=== PATIENT | male | born 1955 | race American Indian/Alaskan Native ===

== ENCOUNTER 2017-02-21 21:18 | Observation (INO) | payer OTHER ==
[2017-02-21] MEDS ORDERED: Nitroglycerin 0.4 MG Tab.SL SL ONE (21:29)
--- NOTE | 2017-02-21 21:32 | EDM.PDOC ---
ED HPI GENERAL MEDICAL PROBLEM - General Chief Complaint: Chest Pain Stated Complaint: chest pain [id number] Time Seen by Provider: 02/21/17 21:30 Source of Information: Reports: Patient History Limitations: Reports: No Limitations - History of Present Illness INITIAL COMMENTS - FREE TEXT/NARRATIVE: mid sternal chest pain on off since yesterday, tried TUMs but '0', had stents placed last year. tonight pain not going away. 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 Mid-Sternal Chest Pain Score (Numeric/FACES): 10 - Related Data Allergies Allergy/AdvReac Type Severity Reaction Status Date / Time venom-honey bee Allergy Difficulty Verified 02/21/17 21:21 [bee venom (honey bee)] Breathing Home Meds: Home Meds Aspirin [Low Dose Aspirin EC] 81 mg PO BEDTIME 07/28/14 [History] Lisinopril 5 mg PO DAILY 07/28/14 [History] Clopidogrel Bisulfate [Clopidogrel] 1 tab PO DAILY 03/19/16 [History] atorvaSTATin Calcium [Atorvastatin Calcium] 20 mg PO DAILY 03/19/16 [History] [place]-3 Fatty Acids [Fish Oil] 2 cap PO BID 05/04/16 [History] Gabapentin [Neurontin] 600 mg PO TID 08/21/16 [History] Isosorbide Mononitrate [Imdur] 60 mg PO BEDTIME 09/24/16 [History] sitaGLIPtin Phos/Metformin HCl [Janumet 50-1,000 MG] 1 each PO BID 02/21/17 [ History] Past Medical History HEENT History: Reports: Other (See Below) Other HEENT History: wears glasses Cardiovascular History: Reports: High Cholesterol, Hypertension Respiratory History: Reports: Pneumonia, Recurrent Gastrointestinal History: Reports: Other (See Below) Other Gastrointestinal History: [place] HERNIA Genitourinary History: Reports: None Musculoskeletal History: Reports: Arthritis Neurological History: Reports: None Psychiatric History: Reports: None Endocrine/Metabolic History: Reports: Diabetes, Type II Hematologic History: Reports: None Immunologic History: Reports: None Oncologic (Cancer) History: Reports: None Dermatologic History: Reports: None - Infectious Disease History Infectious Disease History: Reports: None - Past Surgical History Cardiovascular Surgical History: Reports: Coronary Artery Stent Male Surgical History: Reports: Other (See Below) Social & Family History - Family History Family Medical History: Noncontributory - Tobacco Use Smoking Status *Q: Former Smoker Years of Tobacco use: 10 Packs/Tins Daily: 1 Used Tobacco, but Quit: Yes Month Tobacco Last Used: June Second Hand Smoke Exposure: No - Caffeine Use Caffeine Use: Reports: Coffee, Soda - Alcohol Use Days Per Week of Alcohol Use: 0 - Recreational Drug Use Recreational Drug Use: No ED ROS GENERAL - Review of Systems Review Of Systems: ROS reveals no pertinent complaints other than HPI. ED EXAM, GENERAL - Physical Exam Exam: See Below Exam Limited By: No Limitations General Appearance: Alert, WD/WN, Anxious Ears: Hearing Grossly Normal Throat/Mouth: Normal Voice, No Airway Compromise Head: Atraumatic Neck: Non-Tender, Full Range of Motion Respiratory/Chest: No Respiratory Distress Cardiovascular: Regular Rate, Rhythm GI/Abdominal: Soft, Non-Tender Neurological: Alert, Oriented, Normal Cognition, Normal Gait, No Motor/Sensory Deficits Psychiatric: Flat Affect Skin Exam: Warm, Dry Lymphatic: No Adenopathy Course - Vital Signs Last Recorded V/S: Last Vital Signs Temp 36.4 C 02/21/17 21:28 Pulse 83 02/21/17 22:40 Resp 20 02/21/17 22:40 BP 134/74 02/21/17 22:40 Pulse Ox 98 02/21/17 22:40 - Orders/Labs/Meds Orders: Active Orders 24 hr Category Date Time Status EKG Documentation Completion [RC] STAT Care 02/21/17 21:33 Active Labs: Laboratory Tests 02/21/17 02/21/17 02/21/17 Range/Units 21:25 21:25 21:25 WBC 5.3 (5.0-10.0) 10^3/uL RBC 3.98 L (4.6-6.2) 10^6/uL Hgb 11.7 L (14.0-18.0) g/dL Hct 35.0 L (40.0-54.0) % MCV 87.9 (80-100) fL MCH 29.4 (27.0-34.0) pg MCHC 33.4 (33.0-35.0) g/dL Plt Count 220 (150-450) 10^3/uL Neut % (Auto) 50.6 (42.2-75.2) % Lymph % (Auto) 29.6 (20.5-50.1) % Thayer % (Auto) 15.7 H (2-8) % Eos % (Auto) 3.7 H (1.0-3.0) % Baso % (Auto) 0.4 (0.0-1.0) % D-Dimer, Quantitative 376 (0-400) ng/mL Sodium 140 (135-145) mmol/L Potassium 4.6 (3.6-5.0) mmol/L Chloride 106 (101-111) mmol/L Carbon Dioxide 26.0 (21.0-31.0) mmol/L Anion Gap 12.6 BUN 13 (7-18) mg/dL Creatinine 1.1 (0.6-1.3) mg/dL Est Cr Clr Drug Dosing 74.16 mL/min Estimated GFR (MDRD) > 60 BUN/Creatinine Ratio 11.81 Glucose 191 H (74-105) mg/dL Calcium 9.1 (8.4-10.2) mg/dl Total Bilirubin 0.5 (0.2-1.0) mg/dL AST 23 (10-42) IU/L ALT 26 (10-60) IU/L Alkaline Phosphatase 95 (42-121) IU/L Troponin I < 0.02 (0.00-0.02) ng/ml B-Natriuretic Peptide 15 (0-100) pg/ml Total Protein 7.0 (6.7-8.2) g/dl Albumin 3.7 (3.2-5.5) g/dl Globulin 3.3 Albumin/Globulin Ratio 1.12 Meds: Medications Discontinued Medications Generic Name Dose Route Start Last Admin Trade Name Tato PRN Reason Stop Dose Admin Morphine Sulfate 2 mg 02/21/17 21:40 02/21/17 21:45 Morphine IVPUSH 02/21/17 21:41 2 mg ONETIME ONE Administration Nitroglycerin 0.4 mg 02/21/17 21:29 02/21/17 21:32 Nitrostat SL 02/21/17 21:30 0.4 mg ONETIME ONE Administration Ondansetron HCl 4 mg 02/21/17 21:40 02/21/17 21:45 Zofran IV 02/21/17 21:41 4 mg ONETIME ONE Administration - Re-Assessments/Exams Free Text/Narrative Re-Assessment/Exam: 02/21/17 22:44 results discussed with Pt and case discussed with Dr Bradley who kindly admitted pt to observation Departure - Departure Time of Disposition: 22:45 Disposition: Refer to Observation Condition: Good Clinical Impression: Chest pain Qualifiers: Chest pain type: other chest pain Qualified Code(s): R07.89 - Other chest pain ; R07.8 - Other chest pain Forms: ED Department Discharge - My Orders Last 24 Hours: My Active Orders 02/21/17 21:33 EKG Documentation Completion [RC] STAT - Assessment/Plan Last 24 Hours: My Active Orders 02/21/17 21:33 EKG Documentation Completion [RC] STAT
[2017-02-21] MEDS ORDERED: Morphine 2 MG/ML Syringe IVPUSH ONE (21:40)
[2017-02-21] MEDS ORDERED: Ondansetron 4 MG/2 ML SDV IV ONE (21:40)
[2017-02-21 21:53] LABS: CHLORIDE,CL 106 mmol/L (101-111); SODIUM,NA 140 mmol/L (135-145)
[2017-02-22] MEDS ORDERED: Nitroglycerin 0.4 MG Tab.SL SL PRN (00:08)
[2017-02-22] MEDS ORDERED: Aspirin 81 MG Tab.Chew PO ONE (00:09)
[2017-02-22] MEDS ORDERED: Acetaminophen 325 MG Tab PO PRN (00:10)
[2017-02-22] MEDS ORDERED: Ondansetron 4 MG/2 ML SDV IVPUSH PRN (00:12)
[2017-02-22] MEDS ORDERED: Morphine 2 MG/ML Syringe IVPUSH PRN (00:12)
[2017-02-22] MEDS ORDERED: Pantoprazole 40 MG Vial IVPUSH SCH (00:15)
[2017-02-22] MEDS ORDERED: Sodium Chloride 0.9% 1,000 ML IV SCH (00:15)
--- NOTE | 2017-02-22 00:44 | PCM.HP ---
H&P History of Present Illness - General Date of Service: 02/22/17 Admit Problem/Dx: Admission Diagnosis/Problem Admission Diagnosis/Problem Chest pain Source of Information: Patient History Limitations: Reports: No Limitations - History of Present Illness Initial Comments - Free Text/Narative: 61-year-old male was the best medical history significant for coronary artery disease status post stent on year ago, diabetes mellitus type 2, arthritis, recurrent pneumonia, hypertension, high cholesterol present to the emergency room w chest pain started 2 days ago. Patient stated that his chest pain started while sitting watching TV 2 days ago and has been on and off until early this afternoon when it become constant and worse. The pain is located in the lower sternum area and this evening start radiating to his right neck, right shoulder, right arm. The pain is rated at 7-10/10 on pain scale. He described the pain as chest tightness. Initially pain was getting worse with deep breathing but today nothing made the pain worse or better. Today he started feeling short of breath described as difficulty to take a deep breath. He said it felt like his symptoms when he had his stent placed. He admitted feeling feverish and having the chills today and feeling lightheaded and having nausea but denies cough, syncopal episode, vomiting. He denies history of smoking. He took antiacid medications at home and did not help his pain. He denies any other symptoms or concerns. He took all his medications today. He took 2 baby aspirin at homeIn the emergency room his EKG did not show acute ST or T-wave changes and was positive for prolonged MI interval. Repeated EKG on the floor while he was rating his pain at 9/10 shows sinus rhythm with first degree AV block but no ST or T-wave changes. Troponin was less than 0.02. His CBC and CMP are unremarkable. In ER he was given sublingual nitroglycerin which did not help however 2 mg of morphine helped his pain for short time. Mid-Sternal Chest Pain Score (Numeric/FACES): 9 - Related Data Allergies/Adverse Reactions: Allergies Allergy/AdvReac Type Severity Reaction Status Date / Time venom-honey bee Allergy Difficulty Verified 02/21/17 23:15 [bee venom (honey bee)] Breathing Home Medications: Home Meds Aspirin [Low Dose Aspirin EC] 81 mg PO BEDTIME 07/28/14 [History] Lisinopril 5 mg PO DAILY 07/28/14 [History] Clopidogrel Bisulfate [Clopidogrel] 1 tab PO DAILY 03/19/16 [History] atorvaSTATin Calcium [Atorvastatin Calcium] 20 mg PO DAILY 03/19/16 [History] [place]-3 Fatty Acids [Fish Oil] 2 cap PO BID 05/04/16 [History] Gabapentin [Neurontin] 600 mg PO BEDTIME 08/21/16 [History] Isosorbide Mononitrate [Imdur] 60 mg PO BEDTIME 09/24/16 [History] Acetaminophen 325 mg PO Q4HR PRN 02/21/17 [History] Metoprolol Succinate [Toprol XL] 25 mg PO DAILY 02/21/17 [History] sitaGLIPtin Phos/Metformin HCl [Janumet 50-1,000 MG] 1 each PO BID 02/21/17 [ History] Past Medical History HEENT History: Reports: Other (See Below) Other HEENT History: wears glasses Cardiovascular History: Reports: High Cholesterol, Hypertension, Stents Respiratory History: Reports: Pneumonia, Recurrent Gastrointestinal History: Reports: Other (See Below) Other Gastrointestinal History: [place] HERNIA Genitourinary History: Reports: None Musculoskeletal History: Reports: Arthritis Neurological History: Reports: Neuropathy, Peripheral Psychiatric History: Reports: None Endocrine/Metabolic History: Reports: Diabetes, Type II Hematologic History: Reports: None Immunologic History: Reports: None Oncologic (Cancer) History: Reports: None Dermatologic History: Reports: None - Infectious Disease History Infectious Disease History: Reports: None - Past Surgical History Head Surgeries/Procedures: Reports: None Cardiovascular Surgical History: Reports: Coronary Artery Stent GI Surgical History: Reports: Appendectomy, Cholecystectomy, Hernia Repair/Other Male Surgical History: Reports: None Social & Family History - Family History Family Medical History: Noncontributory - Tobacco Use Smoking Status *Q: Former Smoker Years of Tobacco use: 7 Packs/Tins Daily: 1 Used Tobacco, but Quit: Yes Month Tobacco Last Used: Jun, 2015 Second Hand Smoke Exposure: No - Caffeine Use Caffeine Use: Reports: Coffee, Soda - Alcohol Use Days Per Week of Alcohol Use: 0 - Recreational Drug Use Recreational Drug Use: No H&P Review of Systems - Review of Systems: Review Of Systems: See Below General: Denies: Diaphoresis, Decreased Appetite, Weight Loss, Weight Gain HEENT: Reports: No Symptoms Pulmonary: Denies: Wheezing, Cough, Sputum, Hemoptysis Cardiovascular: Denies: Palpitations, Orthopnea, PND, Edema, Syncope Gastrointestinal: Reports: No Symptoms (Except feeling nauseous) Genitourinary: Reports: No Symptoms Musculoskeletal: Reports: No Symptoms Skin: Reports: No Symptoms Psychiatric: Reports: No Symptoms Neurological: Reports: No Symptoms Hematologic/Lymphatic: Reports: No Symptoms Immunologic: Reports: No Symptoms Exam - Exam Exam: See Below - Vital Signs Vital Signs: Last Vital Signs Temp 36.9 C 02/21/17 23:15 Pulse 85 02/21/17 23:15 Resp 20 02/21/17 23:15 BP 157/79 H 02/22/17 00:21 Pulse Ox 100 02/21/17 23:15 Weight: 98.475 kg - Exam General: Alert, Oriented, Cooperative, Mild Distress (From chest pain but improved after he got nitroglycerin on the floor). No: Moderate Distress, Severe Distress, Sedated, Lethargic, Obtunded HEENT: Conjunctiva Clear, EACs Clear, EOMI, Hearing Intact, Mucosa Moist & Bazine , Nares Patent, Normal Nasal Septum, Posterior Pharynx Clear, Pupils Equal, Pupils Reactive, TMs Clear Neck: Supple, Trachea Midline, +2 Carotid Pulse wo Bruit Lungs: Clear to Auscultation, Normal Respiratory Effort. No: Decreased Breath Sounds, Crackles, Rales, Rhonchi, Rub, Stridor, Wheezing Cardiovascular: Regular Rate, Regular Rhythm, Normal S1, Normal S2 Abdomen: Normal Bowel Sounds, Soft, Pelvis Stable. No: Organomegaly, Peritoneal Signs, Distention, Guarding, Rigidity, Rebound, Tenderness, McBurney' s Sign, Carreno's Sign (Male) Exam: Deferred Rectal (Males) Exam: Deferred Back Exam: Normal Inspection, Full Range of Motion Extremities: Normal Inspection, Normal Pulses. No: Clubbing, Cyanosis, Calf Tenderness, Edema Skin: Warm, Dry, Intact Neurological: Cranial Nerves Intact, Strength Equal Bilateral, Normal Speech, Normal Tone, Sensation Intact. No: Focal Deficit Neuro Extensive - Mental Status: Alert, Oriented x3, Normal Mood/Affect, Normal Cognition, Memory Intact Neuro Extensive - Motor, Sensory, Reflexes: CN II-XII Intact Psychiatric: Alert, Normal Affect, Normal Mood - Patient Data Result Diagrams: 02/21/17 21:25 02/21/17 21:25 *Q Meaningful Use (ADM) - VTE *Q VTE Criteria *Q: - Stroke *Q Stroke Criteria *Q: - AMI *Q AMI Criteria *Q: - Problem List (1) Diabetes mellitus type 2 in obese SNOMED Code(s): 90112383 ICD Code: E11.69 - TYPE 2 DIABETES MELLITUS WITH OTHER SPECIFIED COMPLICATION ; E66.9 - OBESITY, UNSPECIFIED Status: Chronic Current Visit: Yes (2) Essential hypertension SNOMED Code(s): 83414356 ICD Code: I10 - ESSENTIAL (PRIMARY) HYPERTENSION Status: Chronic Current Visit: Yes (3) Status post insertion of drug-eluting stent into right coronary artery for coronary artery disease SNOMED Code(s): 572284397, [id number] ICD Code: Z95.5 - PRESENCE OF CORONARY ANGIOPLASTY IMPLANT AND GRAFT Status : Chronic Current Visit: Yes (4) Chest pain SNOMED Code(s): 45356760 ICD Code: R07.9 - CHEST PAIN, UNSPECIFIED Status: Acute Priority: High Current Visit: Yes Qualifiers: Chest pain type: other chest pain Qualified Code(s): R07.89 - Other chest pain; R07.8 - Other chest pain (5) Nausea SNOMED Code(s): 804386943 ICD Code: R11.0 - NAUSEA Status: Acute Current Visit: No Problem List Initiated/Reviewed/Updated: Yes Orders Last 24hrs: Active Orders 24 hr Category Date Time Status Patient Status [ADT] Routine ADT 02/22/17 00:12 Active Antiembolic Devices [RC] PER UNIT ROUTINE Care 02/22/17 00:23 Active Bedrest Bathroom Privileges [RC] ASDIRECTED Care 02/22/17 00:12 Active Cardiac Monitoring [RC] CONTINUOUS Care 02/22/17 00:19 Active EKG 12 Lead [EKG Documentation Completion] [RC] STAT Care 02/22/17 00:07 Active EKG Documentation Completion [RC] AM Care 02/22/17 07:00 Active Height and Weight [RC] DAILY Care 02/22/17 00:12 Active Intake and Output [RC] Q6H Care 02/22/17 00:18 Active Notify Provider Vital Signs [RC] ASDIRECTED Care 02/22/17 00:19 Active Oxygen Therapy [RC] PRN Care 02/22/17 00:12 Active VTE/DVT Education [RC] PER UNIT ROUTINE Care 02/22/17 00:12 Active Vital Signs [RC] Q4H Care 02/22/17 00:12 Active Consistent Carbohydrate Diet [DIET] Diet 02/22/17 Breakfast Active Nothing per Oral Now Diet [DIET] Diet 02/22/17 Breakfast Active BASIC METABOLIC PANEL,BMP [CHEM] AM Lab 02/22/17 05:11 Ordered CBC WITH AUTO DIFF [HEME] AM Lab 02/22/17 05:11 Ordered MAGNESIUM [CHEM] AM Lab 02/22/17 05:11 Ordered TROPONIN I [CHEM] AM Lab 02/22/17 05:11 Ordered TROPONIN I [CHEM] Timed Lab 02/22/17 13:00 Ordered TSH ULTRASENSITIVE [CHEM] AM Lab 02/22/17 05:11 Ordered Acetaminophen [Tylenol] Med 02/22/17 00:10 Ordered 325 mg PO Q4HR PRN Aspirin [Halfprin] Med 02/22/17 21:00 Ordered 81 mg PO BEDTIME Clopidogrel [Plavix] Med 02/22/17 09:00 Ordered 1 tab PO DAILY Enoxaparin [Lovenox] Med 02/22/17 09:00 Ordered 40 mg SUBCUT DAILY Gabapentin Med 02/22/17 21:00 Ordered 600 mg PO BEDTIME Isosorbide Mononitrate [Imdur] Med 02/22/17 21:00 Ordered 60 mg PO BEDTIME Lisinopril [Prinivil] Med 02/22/17 09:00 Ordered 5 mg PO DAILY Metoprolol Succinate [Toprol XL] Med 02/22/17 09:00 Ordered 25 mg PO DAILY Morphine Med 02/22/17 00:12 Ordered 2 mg IVPUSH Q2H PRN Nitroglycerin [Nitrostat] Med 02/22/17 00:08 Active 0.4 mg SL Q5M PRN Nitroglycerin/D5W [Nitroglycerin 25 MG/D5W 250 ML] Med 02/22/17 00:45 Ordered 25 mg in 250 ml IV TITRATE Ondansetron [Zofran] Med 02/22/17 00:12 Ordered 4 mg IVPUSH Q6H PRN Pantoprazole [ProTONIX IV] Med 02/22/17 00:15 Ordered 40 mg IVPUSH Q24H Sodium Chloride 0.9% [Normal Saline] 1,000 ml Med 02/22/17 00:15 Ordered IV ASDIRECTED atorvaSTATin [Lipitor] Med 02/22/17 09:00 Ordered 20 mg PO DAILY sitaGLIPtin Phos/Metformin HCl [Janumet 50-1,000 MG] Med 02/22/17 09:00 Ordered 1 each PO BID Sequential Compression Device [OM.PC] Per Unit Routine Oth 02/22/17 00:20 Ordered Resuscitation Status Routine Resus Stat 02/22/17 00:12 Ordered Medication Orders Nitroglycerin (Nitrostat) 0.4 mg SL Q5M PRN PRN Reason: Chest Pain Last Admin: 02/22/17 00:21 Dose: 0.4 mg Assessment/Plan Comment:: Chest pain in adult Chest pain slightly improved on second dose of nitroglycerin I'll start patient on nitro drip I discussed this patient starting heparin as I cannot exclude acute coronary syndrome/SC. I explained to the patient the benefits versus risk of treatment and I recommended starting heparin. However patient did not want to take the risk of bleeding also had slow so he declined the heparin. He understands that if he has heart attack he may from that and heparin may help reducing the risk of from heart attack He is admitted for observation on telemetry monitoring -Repeat troponin for other 2 sets -Repeat EKG in the morning -Nothing by mouth for now but can eat if next troponin is negative -IV fluid infusion of normal saline at 150 mL per hour -Continue with his lisinopril, metoprolol, Imdur, aspirin, Plavix, atorvastatin Diabetes mellitus type 2 Continue his Janumet Start sliding scale insulin Nausea Most likely from chest pain -I'll give Protonix IV Antiemetic as needed Essential hypertension -Blood pressure is slightly elevated Continue his lisinopril, metoprolol, Imdur Watch blood pressure closely Lovenox for DVT prophylaxis He wants to be full code Plan of care was discussed with patient who agreed with it except he declined heparin
[2017-02-22] MEDS ORDERED: Nitroglycerin/D5W 25 MG/250 ML BOTTLE IV SCH (00:45)
[2017-02-22] MEDS ORDERED: Sodium Chloride 0.9% 10 ML Syringe FLUSH PRN (03:34)
[2017-02-22 06:55] LABS: CHLORIDE,CL 110 mmol/L (101-111); SODIUM,NA 139 mmol/L (135-145)
[2017-02-22] MEDS ORDERED: Non-Formulary Medication 1 Each (Sitagliptin Phos/Metformin Hcl [Janumet 50-1,000 Mg] 1 EA PO SCH ×2 (08:00→09:00)
[2017-02-22] MEDS: Insulin Aspart 100 Units/ML 3 ML Pen SUBCUT SCH ×2 (08:41→11:56)
[2017-02-22] MEDS ORDERED: Clopidogrel 75 MG Tab PO SCH (09:00)
[2017-02-22] MEDS ORDERED: Metoprolol Succinate 25 MG Tab.ER PO SCH (09:00)
[2017-02-22] MEDS ORDERED: Lisinopril 5 MG Tab PO SCH (09:00)
[2017-02-22] MEDS ORDERED: atorvaSTATin 20 MG Tab PO SCH (09:00)
[2017-02-22] MEDS ORDERED: Enoxaparin 40 MG/0.4 ML Syringe SUBCUT SCH (09:00)
[2017-02-22] MEDS ORDERED: Magnesium Sulfate/Water 2 GM in Premix Bag 1 BAG IV ONE (11:06)
[2017-02-22 12:57] VITALS: BP 127/77
--- NOTE | 2017-02-22 14:08 | PCM.DCSUM1 ---
Discharge Summary - Hospital Course Free Text/Narrative:: 61-year-old male was the best medical history significant for coronary artery disease status post 2 stents one year ago, diabetes mellitus type 2, arthritis, recurrent pneumonia, hypertension, high cholesterol present to the emergency room w chest pain started 2-3 days ago. Patient stated that his chest pain started while sitting watching TV 2 days ago and has been on and off until yesterday early afternoon when it become constant and worse. The pain was located in the lower sternum area radiating to his left arm and associated with left facial numbness. Then in the the evening start radiating to his right neck , right shoulder, right arm. The pain was rated at 7-10/10 on pain scale. He described the pain as chest tightness. Initially pain was getting worse with deep breathing and activities but since yesterday nothing made the pain worse or better. Yesterday he started feeling short of breath described as difficulty to take a deep breath. He said it felt like his symptoms when he had his stents placed. He admitted feeling feverish and having the chills yesterday and feeling lightheaded and having nausea but denies cough, syncopal episode, vomiting. He denies history of smoking. He took tums multiple times yesterday at home and did not help his pain. He denies any other symptoms or concerns. 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 He took 2 baby aspirin at home prior to coming to ER. In the emergency room his EKG did not show acute ST or T-wave changes and was positive for prolonged VA interval. Repeated EKG on the floor while he was rating his pain at 9/10 shows sinus rhythm with first degree AV block but no ST or T-wave changes. EKG from this morning shows no changes. His EKGs are similar to EKG from 2016. Troponin has been less than 0.02 for 3 sets. His CBC and CMP are unremarkable. In ER he was given sublingual nitroglycerin which did not help however 2 mg of morphine helped his pain for short time. After coming to floor [place] SL helped so he was started on Nitro drip and early this am his pain resolved so his Nitro drip was stopped later this morning then pain returned and was rated 4/10. patient declined Heparin drip as he did not want to take any rsik of bleeding. I spoke to tester compressed gases, Dr. Redd who kindly accepted that patient needs to be transferred to [place] and have possible at lest stress test. I spoke to Dr. Morrow, Hospitalist who kindly accepted the patient. Patient was transferred to [facility] by [facility] ground ambulance and we will restart his nitro drip en route Plan of care during hospitalization: Chest pain in adult Chest pain slightly improved on second dose of nitroglycerin I'll start patient on nitro drip I discussed this patient starting heparin as I cannot exclude acute coronary syndrome/SC. I explained to the patient the benefits versus risk of treatment and I recommended starting heparin. However patient did not want to take the risk of bleeding also had slow so he declined the heparin. He understands that if he has heart attack he may from that and heparin may help reducing the risk of from heart attack He is admitted for observation on telemetry monitoring Repeat troponin negative for 3 sets Repeat EKG in the morning showed no changes IV fluid infusion of normal saline at 150 mL per hour for 1 litter given Continue with his lisinopril, metoprolol, Imdur, aspirin, Plavix, atorvastatin Diabetes mellitus type 2 Continue his Janumet Start sliding scale insulin Nausea Most likely from chest pain He was started on Protonix IV, received one dose yesterday and another one this am Antiemetic as needed Essential hypertension Blood pressure was slightly elevated on admission, improved on treatment Continue his lisinopril, metoprolol, Imdur Watch blood pressure closely Lovenox for DVT prophylaxis He wanted to be full code Plan of care was discussed with patient who agreed with it except he declined heparin - Discharge Data Discharge Date: 02/22/17 Discharge Disposition: Home, Self-Care 01 Condition: Good - Discharge Diagnosis/Problem(s) (1) Diabetes mellitus type 2 in obese SNOMED Code(s): 20879166 ICD Code: E11.69 - TYPE 2 DIABETES MELLITUS WITH OTHER SPECIFIED COMPLICATION ; E66.9 - OBESITY, UNSPECIFIED Status: Chronic Current Visit: Yes (2) Essential hypertension SNOMED Code(s): 41047035 ICD Code: I10 - ESSENTIAL (PRIMARY) HYPERTENSION Status: Chronic Current Visit: Yes (3) Status post insertion of drug-eluting stent into right coronary artery for coronary artery disease SNOMED Code(s): 884097427, 521774125903897 ICD Code: Z95.5 - PRESENCE OF CORONARY ANGIOPLASTY IMPLANT AND GRAFT Status : Chronic Current Visit: Yes (4) Chest pain SNOMED Code(s): 27603426 ICD Code: R07.9 - CHEST PAIN, UNSPECIFIED Status: Acute Priority: High Current Visit: Yes Qualifiers: Chest pain type: other chest pain Qualified Code(s): R07.89 - Other chest pain; R07.8 - Other chest pain (5) Nausea SNOMED Code(s): 074911881 ICD Code: R11.0 - NAUSEA Status: Acute Current Visit: No - Discharge Plan Home Medications: Home Meds Aspirin [Low Dose Aspirin EC] 81 mg PO BEDTIME 07/28/14 [History] Lisinopril 5 mg PO DAILY 07/28/14 [History] Clopidogrel Bisulfate [Clopidogrel] 1 tab PO DAILY 03/19/16 [History] atorvaSTATin Calcium [Atorvastatin Calcium] 20 mg PO DAILY 03/19/16 [History] [place]-3 Fatty Acids [Fish Oil] 2 cap PO BID 05/04/16 [History] Gabapentin [Neurontin] 600 mg PO BEDTIME 08/21/16 [History] Isosorbide Mononitrate [Imdur] 60 mg PO BEDTIME 09/24/16 [History] Acetaminophen 325 mg PO Q4HR PRN 02/21/17 [History] Metoprolol Succinate [Toprol XL] 25 mg PO DAILY 02/21/17 [History] sitaGLIPtin Phos/Metformin HCl [Janumet 50-1,000 MG] 1 each PO BID 02/21/17 [ History] Forms: ED Department Discharge - General Info Date of Service: 02/22/17 - Review of Systems General: Reports: No Symptoms HEENT: Reports: no symptoms Pulmonary: Reports: no symptoms Cardiovascular: Denies: Palpitations, Orthopnea, PND, Edema Gastrointestinal: Reports: No symptoms Genitourinary: Reports: no symptoms Musculoskeletal: Reports: no symptoms Skin: Reports: no symptoms Neurological: Reports: No Symptoms Psychiatric: Reports: no symptoms - Patient Data Vitals - Most Recent: Last Vital Signs Temp 37.0 C 02/22/17 12:55 Pulse 65 02/22/17 12:55 Resp 20 02/22/17 12:55 BP 127/77 02/22/17 12:55 Pulse Ox 98 02/22/17 12:55 Weight - Most Recent: 98.475 kg I&O - Last 24 hours: Intake & Output 02/21/17 02/22/17 02/22/17 22:59 06:59 14:59 Intake Total 747 62 Output Total 425 500 Balance 322 -438 Lab Results - Last 24 hrs: Laboratory Results - last 24 hr 02/22/17 02/22/17 02/22/17 Range/Units 05:20 05:20 05:40 WBC 5.5 (5.0-10.0) 10^3/uL RBC 3.80 L (4.6-6.2) 10^6/uL Hgb 11.1 L (14.0-18.0) g/dL Hct 33.5 L (40.0-54.0) % MCV 88.2 (80-100) fL MCH 29.2 (27.0-34.0) pg MCHC 33.1 (33.0-35.0) g/dL Plt Count 221 (150-450) 10^3/uL Neut % (Auto) 54.4 (42.2-75.2) % Lymph % (Auto) 25.3 (20.5-50.1) % [place] % (Auto) 14.4 H (2-8) % Eos % (Auto) 5.5 H (1.0-3.0) % Baso % (Auto) 0.4 (0.0-1.0) % Sodium 139 (135-145) mmol/L Potassium 4.3 (3.6-5.0) mmol/L Chloride 110 (101-111) mmol/L Carbon Dioxide 21.0 (21.0-31.0) mmol/L Anion Gap 12.3 BUN 12 (7-18) mg/dL Creatinine 1.0 (0.6-1.3) mg/dL Est Cr Clr Drug Dosing 81.58 mL/min Estimated GFR (MDRD) > 60 Glucose 126 H (74-105) mg/dL POC Glucose (70-105) mg/dl Calcium 8.4 (8.4-10.2) mg/dl Magnesium 1.7 L (1.8-2.5) mg/dL Troponin I < 0.02 (0.00-0.02) ng/ml TSH, Ultra Sensitive 2.36 (0.35-7.0) uIu/mL 02/22/17 02/22/17 02/22/17 Range/Units 07:58 11:52 12:58 WBC (5.0-10.0) 10^3/uL RBC (4.6-6.2) 10^6/uL Hgb (14.0-18.0) g/dL Hct (40.0-54.0) % MCV (80-100) fL MCH (27.0-34.0) pg MCHC (33.0-35.0) g/dL Plt Count (150-450) 10^3/uL Neut % (Auto) (42.2-75.2) % Lymph % (Auto) (20.5-50.1) % Davie % (Auto) (2-8) % Eos % (Auto) (1.0-3.0) % Baso % (Auto) (0.0-1.0) % Sodium (135-145) mmol/L Potassium (3.6-5.0) mmol/L Chloride (101-111) mmol/L Carbon Dioxide (21.0-31.0) mmol/L Anion Gap BUN (7-18) mg/dL Creatinine (0.6-1.3) mg/dL Est Cr Clr Drug Dosing mL/min Estimated GFR (MDRD) Glucose (74-105) mg/dL POC Glucose 133 H 116 H (70-105) mg/dl Calcium (8.4-10.2) mg/dl Magnesium (1.8-2.5) mg/dL Troponin I < 0.02 (0.00-0.02) ng/ml TSH, Ultra Sensitive (0.35-7.0) uIu/mL Med Orders - Current: Current Medications Acetaminophen (Tylenol) 325 mg PO Q4HR PRN PRN Reason: fever/pain Aspirin (Halfprin) 81 mg PO BEDTIME [facility] Atorvastatin Calcium (Lipitor) 20 mg PO DAILY [facility] Last Admin: 02/22/17 08:43 Dose: 20 mg Clopidogrel Bisulfate (Plavix) 75 mg PO DAILY [facility] Last Admin: 02/22/17 08:42 Dose: 75 mg Enoxaparin Sodium (Lovenox) 40 mg SUBCUT DAILY [facility] Last Admin: 02/22/17 08:44 Dose: 40 mg Gabapentin (Neurontin) 600 mg PO BEDTIME [facility] Insulin Aspart (Novolog) 0 unit SUBCUT QIDACANDBED [facility] PRN Reason: Protocol Last Admin: 02/22/17 11:56 Dose: Not Given Isosorbide Mononitrate (Imdur) 60 mg PO BEDTIME [facility] Lisinopril (Prinivil) 5 mg PO DAILY [facility] Last Admin: 02/22/17 08:43 Dose: 5 mg Metoprolol Succinate (Toprol Xl) 25 mg PO DAILY [facility] Last Admin: 02/22/17 08:49 Dose: 25 mg Morphine Sulfate (Morphine) 2 mg IVPUSH Q2H PRN PRN Reason: Pain (severe 7-10) Non-Formulary Medication (Sitagliptin Phos/Metformin Hcl [Janumet 50-1,000 Mg]) 1 each PO BIDMEALS [facility] Last Admin: 02/22/17 10:33 Dose: Not Given Ondansetron HCl (Zofran) 4 mg IVPUSH Q6H PRN PRN Reason: Nausea/Vomiting Pantoprazole Sodium (Protonix Iv) 40 mg IVPUSH Q24H [facility] Last Admin: 02/22/17 01:20 Dose: 40 mg Sodium Chloride (Saline Flush) 10 ml FLUSH ASDIRECTED PRN PRN Reason: Keep Vein Open Discontinued Medications Aspirin (Aspirin) 162 mg PO ONETIME ONE Stop: 02/22/17 00:10 Last Admin: 02/22/17 00:24 Dose: 162 mg Sodium Chloride (Normal Saline) 1,000 mls @ 150 mls/hr IV ASDIRECTED [facility] Stop: 02/22/17 06:54 Last Admin: 02/22/17 01:01 Dose: 150 mls/hr Nitroglycerin/Dextrose (Nitroglycerin 25 Mg/D5w 250 Ml) 25 mg in 250 mls @ 3 mls/hr IV TITRATE THOMPSON; 5 MCG/MIN PRN Reason: Protocol Last Admin: 02/22/17 01:22 Dose: 5 mcg/min, 3 mls/hr Magnesium Sulfate 2 gm/ Premix 50 mls @ 25 mls/hr IV ONETIME ONE Stop: 02/22/17 13:05 Last Admin: 02/22/17 11:49 Dose: 25 mls/hr Morphine Sulfate (Morphine) 2 mg IVPUSH ONETIME ONE Stop: 02/21/17 21:41 Last Admin: 02/21/17 21:45 Dose: 2 mg Nitroglycerin (Nitrostat) 0.4 mg SL ONETIME ONE Stop: 02/21/17 21:30 Last Admin: 02/21/17 21:32 Dose: 0.4 mg Nitroglycerin (Nitrostat) 0.4 mg SL Q5M PRN PRN Reason: Chest Pain Last Admin: 02/22/17 00:21 Dose: 0.4 mg Non-Formulary Medication (Sitagliptin Phos/Metformin Hcl [Janumet 50-1,000 Mg]) 1 each PO BID [facility] Ondansetron HCl (Zofran) 4 mg IV ONETIME ONE Stop: 02/21/17 21:41 Last Admin: 02/21/17 21:45 Dose: 4 mg - Exam General: Reports: alert, oriented, cooperative, no acute distress. Denies: moderate distress, severe distress, sedated, lethargic, obtunded HEENT: Denies: Pupils equal, Pupils reactive, EOMI, Mucous membr. moist/pink Neck: Reports: supple, trachea midline, no JVD Lungs: Reports: Clear to auscultation, Normal respiratory effort Cardiovascular: Reports: Regular Rate, Regular Rhythm Abdomen: Reports: bowel sounds present, soft, no tenderness, no distension. Denies: rigidity, guarding, tenderness, distension, abnormal bowel sounds, organomegaly (Male) Exam: Deferred Rectal (Males) Exam: Deferred Back Exam: Reports: Normal Inspection, Full Range of Motion Extremities: Reports: no edema, normal pulses, no tenderness/swelling, no clubbing, no cyanosis, no calf tenderness Skin: Reports: warm, dry, intact Neurological: Reports: no new focal deficit Psy/Mental Status: Reports: alert, normal affect, normal mood *Q Meaningful Use (DIS) - VTE *Q VTE Criteria *Q: - Stroke *Q Stroke Criteria *Q: - AMI *Q AMI Criteria *Q:
[2017-02-22] MEDS ORDERED: Gabapentin 300 MG Cap PO SCH (21:00)
[2017-02-22] MEDS ORDERED: Isosorbide Mononitrate 60 MG Tab.ER PO SCH (21:00)
[2017-02-22] MEDS ORDERED: Aspirin 81 MG Tab.EC PO SCH (21:00)
--- NOTE | 2017-02-25 10:20 | EKG ---
02/21/2017 - JESSE GILLETTE - Date: 02/21/2017. Time: 2120 hours. I reviewed the EKG and agree with the machine's reading. [facility] /[id number]
--- NOTE | 2017-02-25 10:23 | EKG ---
02/22/2017 - JESSE GILLETTE - Date: 02/22/2017. Time: 9:57. I reviewed the EKG and agree with the machine's reading. [facility] /[id number]
--- NOTE | 2017-02-25 10:23 | EKG ---
02/21/2017 - JESSE GILLETTE - Date: 02/21/2017. Time: 2340 hours. I reviewed the EKG and agree with the machine's reading. [facility] /[id number]
== END 2017-02-22 15:00 | disposition home or self-care (01) ==
LOC: DL.ED 21:18 → DL.MS 23:07
PROVIDERS: ADMIT Family Medicine; ATTEND Family Medicine
DX: R07.89 Other chest pain (principal); I10 Essential (primary) hypertension; E66.9 Obesity, unspecified; Z95.5 Presence of coronary angioplasty implant and graft; R11.0 Nausea; E78.00 Pure hypercholesterolemia, unspecified; M19.90 Unspecified osteoarthritis, unspecified site; E11.42 Type 2 diabetes mellitus with diabetic polyneuropathy; E11.69 Type 2 diabetes mellitus with other specified complication; Z91.030 Bee allergy status; Z79.82 Long term (current) use of aspirin; Z87.891 Personal history of nicotine dependence; Z79.899 Other long term (current) drug therapy; Z90.49 Acquired absence of other specified parts of digestive tract; Z98.890 Other specified postprocedural states
CPT/HCPCS: 36415; 71010; 80048; 80053; 82962; 83735; 83880; 84443; 84484; 85025; 85379; 93005; 96365; 96366; 96367; 96372; 96375; 99285; A9270; C9113; G0378; J1650; J2270; J2405; J7030; 96374; J3475

== ENCOUNTER 2017-03-12 17:41 | Emergency (ER) | payer OTHER ==
--- NOTE | 2017-03-12 17:50 | EDM.PDOC ---
ED HPI GENERAL MEDICAL PROBLEM - General Chief Complaint: ENT Problem Stated Complaint: LOWER PART OF MOUTH IS SWOLLEN, [id number] Time Seen by Provider: 03/12/17 18:00 Source of Information: Reports: Patient, RN, RN Notes Reviewed History Limitations: Reports: No Limitations - History of Present Illness INITIAL COMMENTS - FREE TEXT/NARRATIVE: Complains of onset of painful sores on the inner lips, gums and oral membranes for the last 2 days. Denies fefever, sore throat or any other symptoms. No other skin lesions or rash. Location: Reports: Other (Mouth) Quality: Reports: Ache Severity: Moderate Improves with: Reports: None Worsens with: Reports: None Associated Symptoms: Reports: No Other Symptoms Oral/Mouth Pain Score (Numeric/FACES): 10 - Related Data Allergies Allergy/AdvReac Type Severity Reaction Status Date / Time venom-honey bee Allergy Difficulty Verified 02/21/17 23:15 [bee venom (honey bee)] Breathing Home Meds: Home Meds Aspirin [Low Dose Aspirin EC] 81 mg PO BEDTIME 07/28/14 [History] Lisinopril 5 mg PO DAILY 07/28/14 [History] Clopidogrel Bisulfate [Clopidogrel] 1 tab PO DAILY 03/19/16 [History] atorvaSTATin Calcium [Atorvastatin Calcium] 20 mg PO DAILY 03/19/16 [History] [place]-3 Fatty Acids [Fish Oil] 2 cap PO BID 05/04/16 [History] Gabapentin [Neurontin] 600 mg PO BEDTIME 08/21/16 [History] Isosorbide Mononitrate [Imdur] 60 mg PO BEDTIME 09/24/16 [History] Acetaminophen 325 mg PO Q4HR PRN 02/21/17 [History] Metoprolol Succinate [Toprol XL] 25 mg PO DAILY 02/21/17 [History] sitaGLIPtin Phos/Metformin HCl [Janumet 50-1,000 MG] 1 each PO BID 02/21/17 [ History] Past Medical History HEENT History: Reports: Other (See Below) Other HEENT History: wears glasses Cardiovascular History: Reports: High Cholesterol, Hypertension, Stents Respiratory History: Reports: Pneumonia, Recurrent Gastrointestinal History: Reports: Other (See Below) Other Gastrointestinal History: PORT S[place] HERNIA Genitourinary History: Reports: None Musculoskeletal History: Reports: Arthritis Neurological History: Reports: Neuropathy, Peripheral Psychiatric History: Reports: None Endocrine/Metabolic History: Reports: Diabetes, Type II Hematologic History: Reports: None Immunologic History: Reports: None Oncologic (Cancer) History: Reports: None Dermatologic History: Reports: None - Infectious Disease History Infectious Disease History: Reports: None - Past Surgical History Head Surgeries/Procedures: Reports: None Cardiovascular Surgical History: Reports: Coronary Artery Stent GI Surgical History: Reports: Appendectomy, Cholecystectomy, Hernia Repair/Other Male Surgical History: Reports: None Social & Family History - Family History Family Medical History: Noncontributory - Tobacco Use Smoking Status *Q: Former Smoker Years of Tobacco use: 7 Packs/Tins Daily: 1 Used Tobacco, but Quit: Yes Month Tobacco Last Used: Jun, 2015 Second Hand Smoke Exposure: No - Caffeine Use Caffeine Use: Reports: Coffee, Soda - Alcohol Use Days Per Week of Alcohol Use: 0 - Recreational Drug Use Recreational Drug Use: No ED ROS ENT - Review of Systems Review Of Systems: ROS reveals no pertinent complaints other than HPI. ED EXAM, ENT - Physical Exam Exam: See Below Exam Limited By: No Limitations General Appearance: Alert, WD/WN, No Apparent Distress Mouth/Throat: Other (multiple intraoral apthous ulcers. ) Head: Atraumatic, Normocephalic Neck: Normal Inspection, Supple, Non-Tender, Full Range of Motion Respiratory/Chest: No Respiratory Distress, Lungs Clear, Normal Breath Sounds, No Accessory Muscle Use, Chest Non-Tender Cardiovascular: Normal Peripheral Pulses, Regular Rate, Rhythm, No Edema, No Gallop, No JVD, No Murmur, No Rub Neurological: Alert, Oriented, CN II-XII Intact, Normal Cognition, Normal Gait, Normal Reflexes, No Motor/Sensory Deficits Psychiatric: Normal Affect, Normal Mood Skin: Warm, Dry, Intact, Normal Color, No Rash Lymphatic: No Adenopathy Course - Vital Signs Last Recorded V/S: Last Vital Signs Temp 37.2 C 03/12/17 17:59 Pulse 93 03/12/17 17:59 Resp 16 03/12/17 17:59 BP 130/83 03/12/17 17:59 Pulse Ox 99 03/12/17 17:59 - Orders/Labs/Meds Meds: Medications Discontinued Medications Generic Name Dose Route Start Last Admin Trade Name Freq PRN Reason Stop Dose Admin Lidocaine HCl 15 ml 03/12/17 18:20 Xylocaine 2% Viscous PO 03/12/17 18:21 ONETIME ONE Departure - Departure Time of Disposition: 18:19 Disposition: Home, Self-Care 01 Condition: Good Clinical Impression: Canker sores oral - Discharge Information Instructions: Canker Sores Forms: ED Department Discharge Additional Instructions: Viscus Lidocaine apply with Q-tip to each painful lesion every 1 to 2 hours as needed for pain and spit the excess. Follow up in clinic if not improved in 10 days.
[2017-03-12 18:00] VITALS: BP 130/83
[2017-03-12] MEDS ORDERED: Lidocaine 2% Viscous Solution 15 ML Cup PO ONE (18:20)
== END 2017-03-12 18:37 | disposition home or self-care (01) ==
LOC: DL.ED 17:41
DX: K12.0 Recurrent oral aphthae (principal); I10 Essential (primary) hypertension; E78.00 Pure hypercholesterolemia, unspecified; M19.90 Unspecified osteoarthritis, unspecified site; E11.9 Type 2 diabetes mellitus without complications; G62.9 Polyneuropathy, unspecified; Z91.030 Bee allergy status; Z79.82 Long term (current) use of aspirin; Z79.02 Long term (current) use of antithrombotics/antiplatelets; Z79.899 Other long term (current) drug therapy; Z95.5 Presence of coronary angioplasty implant and graft; Z90.49 Acquired absence of other specified parts of digestive tract; Z98.890 Other specified postprocedural states; Z87.891 Personal history of nicotine dependence
CPT/HCPCS: 99283; A9270

== ENCOUNTER 2017-04-04 20:12 | Emergency (ER) | payer OTHER ==
[2017-04-04 20:21] VITALS: BP 153/73
[2017-04-04] MEDS ORDERED: Ondansetron 4 MG/2 ML SDV IV ONE (20:25)
[2017-04-04] MEDS ORDERED: HYDROmorphone 1 MG/ML Syringe IVPUSH ONE (20:25)
[2017-04-04] MEDS ORDERED: Butorphanol 2 MG/ML SDV IM ONE (20:49)
[2017-04-04] MEDS ORDERED: Acyclovir 200 MG Cap PO ONE (20:49)
[2017-04-04] MEDS ORDERED: Promethazine 25 MG/ML SDV IM ONE (20:49)
--- NOTE | 2017-04-04 20:58 | EDM.PDOC ---
ED HPI GENERAL MEDICAL PROBLEM - General Chief Complaint: ENT Problem Stated Complaint: MOUTH INFECTION [id number] Time Seen by Provider: 04/04/17 20:54 Source of Information: Reports: Patient History Limitations: Reports: No Limitations - History of Present Illness INITIAL COMMENTS - FREE TEXT/NARRATIVE: 1 month h/o mouth sores, got lido viscous but doesn't last long for pain relief and sores are not going away. Oral/Mouth Pain Score (Numeric/FACES): 10 - Related Data Allergies Allergy/AdvReac Type Severity Reaction Status Date / Time venom-honey bee Allergy Difficulty Verified 04/04/17 20:23 [bee venom (honey bee)] Breathing Home Meds: Home Meds Aspirin [Low Dose Aspirin EC] 81 mg PO BEDTIME 07/28/14 [History] Lisinopril 5 mg PO DAILY 07/28/14 [History] Clopidogrel Bisulfate [Clopidogrel] 1 tab PO DAILY 03/19/16 [History] atorvaSTATin Calcium [Atorvastatin Calcium] 20 mg PO DAILY 03/19/16 [History] [place]-3 Fatty Acids [Fish Oil] 2 cap PO BID 05/04/16 [History] Gabapentin [Neurontin] 600 mg PO BEDTIME 08/21/16 [History] Isosorbide Mononitrate [Imdur] 60 mg PO BEDTIME 09/24/16 [History] Acetaminophen 325 mg PO Q4HR PRN 02/21/17 [History] Metoprolol Succinate [Toprol XL] 25 mg PO DAILY 02/21/17 [History] metFORMIN [Glucophage] 500 mg PO BIDMEALS 04/04/17 [History] Past Medical History HEENT History: Reports: Other (See Below) Other HEENT History: wears glasses Cardiovascular History: Reports: High Cholesterol, Hypertension, Stents Respiratory History: Reports: Pneumonia, Recurrent Gastrointestinal History: Reports: Other (See Below) Other Gastrointestinal History: PORT S[place] HERNIA Genitourinary History: Reports: None Musculoskeletal History: Reports: Arthritis Neurological History: Reports: Neuropathy, Peripheral Psychiatric History: Reports: None Endocrine/Metabolic History: Reports: Diabetes, Type II Hematologic History: Reports: None Immunologic History: Reports: None Oncologic (Cancer) History: Reports: None Dermatologic History: Reports: None - Infectious Disease History Infectious Disease History: Reports: None - Past Surgical History Head Surgeries/Procedures: Reports: None Cardiovascular Surgical History: Reports: Coronary Artery Stent GI Surgical History: Reports: Appendectomy, Cholecystectomy, Hernia Repair/Other Male Surgical History: Reports: None Social & Family History - Family History Family Medical History: Noncontributory - Tobacco Use Smoking Status *Q: Former Smoker Years of Tobacco use: 7 Packs/Tins Daily: 1 Used Tobacco, but Quit: Yes Month Tobacco Last Used: Jun, 2015 Second Hand Smoke Exposure: No - Caffeine Use Caffeine Use: Reports: Coffee, Tea - Alcohol Use Days Per Week of Alcohol Use: 0 - Recreational Drug Use Recreational Drug Use: No ED ROS ENT - Review of Systems Review Of Systems: ROS reveals no pertinent complaints other than HPI. ED EXAM, ENT - Physical Exam Exam: See Below Exam Limited By: No Limitations General Appearance: Alert, WD/WN, Mild Distress, Other (mouth pain) Ears: Hearing Grossly Normal Mouth/Throat: Other (cancer sores on tongue and cheeks) Head: Atraumatic Neck: Non-Tender, Full Range of Motion Respiratory/Chest: No Respiratory Distress Cardiovascular: Regular Rate, Rhythm GI/Abdominal: Soft, Non-Tender Neurological: Alert, Oriented, Normal Cognition, Normal Gait, No Motor/Sensory Deficits Psychiatric: Flat Affect Skin: Warm, Dry, Normal Color Lymphatic: No Adenopathy Course - Vital Signs Last Recorded V/S: Last Vital Signs Temp 36.3 C 04/04/17 20:18 Pulse 64 04/04/17 20:18 Resp 16 04/04/17 20:18 BP 153/73 H 04/04/17 20:18 Pulse Ox 98 04/04/17 20:18 - Orders/Labs/Meds Meds: Medications Discontinued Medications Generic Name Dose Route Start Last Admin Trade Name Tato PRN Reason Stop Dose Admin Acyclovir 200 mg 04/04/17 20:49 Zovirax PO 04/04/17 20:50 ONETIME ONE Butorphanol Tartrate 2 mg 04/04/17 20:49 Stadol IM 04/04/17 20:50 ONETIME ONE Hydromorphone HCl 1 mg 04/04/17 20:25 Dilaudid IVPUSH 04/04/17 20:26 ONETIME ONE Ondansetron HCl 4 mg 04/04/17 20:25 Zofran IV 04/04/17 20:26 ONETIME ONE Promethazine HCl 25 mg 04/04/17 20:49 Phenergan IM 04/04/17 20:50 ONETIME ONE Departure - Departure Time of Disposition: 20:56 Disposition: Home, Self-Care 01 Condition: Good Clinical Impression: Aphthous ulcer of mouth - Discharge Information Instructions: Stomatitis, [id number] Additional Instructions: 1) try not wearing denture as often for the next week 2) try eating yoghurt (CHOBANI) 3) follow up with clinic or recheck as needed rx given; zovirax 200mg 5 times daily x 5 days
== END 2017-04-04 21:22 | disposition home or self-care (01) ==
LOC: DL.ED 20:12
DX: K12.0 Recurrent oral aphthae (principal); E78.00 Pure hypercholesterolemia, unspecified; I10 Essential (primary) hypertension; E11.9 Type 2 diabetes mellitus without complications; M19.90 Unspecified osteoarthritis, unspecified site; Z90.49 Acquired absence of other specified parts of digestive tract; Z87.891 Personal history of nicotine dependence; Z91.030 Bee allergy status; Z79.82 Long term (current) use of aspirin; Z79.899 Other long term (current) drug therapy
CPT/HCPCS: 96372; 99282; A9270; J0595; J2550

== ENCOUNTER 2017-07-09 10:02 | Emergency (ER) | payer OTHER ==
--- NOTE | 2017-07-09 10:10 | EDM.PDOC ---
ED HPI GENERAL MEDICAL PROBLEM - General Chief Complaint: Chest Pain Stated Complaint: IN BY AMBULANCE Time Seen by Provider: 07/09/17 10:05 Source of Information: Reports: Patient, EMS, Provider History Limitations: Reports: No Limitations - History of Present Illness INITIAL COMMENTS - FREE TEXT/NARRATIVE: 61 yo [place] male c/o chest pain with back pain when driving today. PMHx. DM, CAHD w/ 3 Stents. Pt. seen this AM at [facility] and given aspirin and transferred to this ED and on the way developed cp 10/18 and given ntg now pain . No SOB Onset: Today Onset Date: 07/09/17 Onset Time: 20:00 Duration: Hour(s): Location: Reports: Chest Quality: Reports: Pressure, Same as Previous Episode Severity: Moderate Improves with: Reports: Medication Worsens with: Reports: Movement Associated Symptoms: Reports: Chest Pain Right Chest Pain Score (Numeric/FACES): 1 - Related Data Allergies Allergy/AdvReac Type Severity Reaction Status Date / Time venom-honey bee Allergy Difficulty Verified 07/09/17 10:15 [bee venom (honey bee)] Breathing Home Meds: Home Meds Aspirin [Low Dose Aspirin EC] 81 mg PO BEDTIME 07/28/14 [History] Lisinopril 5 mg PO DAILY 07/28/14 [History] Clopidogrel Bisulfate [Clopidogrel] 1 tab PO DAILY 03/19/16 [History] atorvaSTATin Calcium [Atorvastatin Calcium] 20 mg PO DAILY 03/19/16 [History] [place]-3 Fatty Acids [Fish Oil] 2 cap PO BID 05/04/16 [History] Gabapentin [Neurontin] 600 mg PO BID 08/21/16 [History] Isosorbide Mononitrate [Imdur] 60 mg PO BEDTIME 09/24/16 [History] Acetaminophen 325 mg PO Q4HR PRN 02/21/17 [History] Metoprolol Succinate [Toprol XL] 25 mg PO DAILY 02/21/17 [History] metFORMIN [Glucophage] 500 mg PO BIDMEALS 04/04/17 [History] Multivitamin [Multivitamins] 1 each PO DAILY 07/09/17 [History] Saxagliptin HCl [Onglyza] 5 mg PO DAILY 07/09/17 [History] Past Medical History HEENT History: Reports: Other (See Below) Other HEENT History: wears glasses Cardiovascular History: Reports: High Cholesterol, Hypertension, Stents Respiratory History: Reports: Pneumonia, Recurrent Gastrointestinal History: Reports: Other (See Below) Other Gastrointestinal History: [place] HERNIA Genitourinary History: Reports: None Musculoskeletal History: Reports: Arthritis Neurological History: Reports: Neuropathy, Peripheral Psychiatric History: Reports: None Endocrine/Metabolic History: Reports: Diabetes, Type II Hematologic History: Reports: None Immunologic History: Reports: None Oncologic (Cancer) History: Reports: None Dermatologic History: Reports: None - Infectious Disease History Infectious Disease History: Reports: None - Past Surgical History Head Surgeries/Procedures: Reports: None Cardiovascular Surgical History: Reports: Coronary Artery Stent GI Surgical History: Reports: Appendectomy, Cholecystectomy, Hernia Repair/Other Male Surgical History: Reports: None Social & Family History - Family History Family Medical History: Noncontributory - Tobacco Use Smoking Status *Q: Former Smoker Years of Tobacco use: 7 Packs/Tins Daily: 1 Used Tobacco, but Quit: Yes Month Tobacco Last Used: Jun, 2015 Second Hand Smoke Exposure: No - Caffeine Use Caffeine Use: Reports: Coffee, Tea - Alcohol Use Days Per Week of Alcohol Use: 0 - Recreational Drug Use Recreational Drug Use: No ED ROS GENERAL - Review of Systems Review Of Systems: See Below Constitutional: Reports: No Symptoms HEENT: Reports: No Symptoms Respiratory: Reports: No Symptoms Cardiovascular: Reports: Chest Pain Endocrine: Reports: No Symptoms GI/Abdominal: Reports: No Symptoms : Reports: No Symptoms Musculoskeletal: Reports: No Symptoms Skin: Reports: No Symptoms Neurological: Reports: No Symptoms Psychiatric: Reports: No Symptoms Hematologic/Lymphatic: Reports: No Symptoms Immunologic: Reports: No Symptoms ED EXAM, GENERAL - Physical Exam Exam: See Below Exam Limited By: No Limitations General Appearance: Alert, WD/WN, No Apparent Distress Eye Exam: Bilateral Eye: EOMI, PERRL Ears: Normal External Exam Nose: Normal Inspection Throat/Mouth: Normal Inspection Head: Atraumatic, Normocephalic Neck: Normal Inspection, Supple Respiratory/Chest: No Respiratory Distress, Lungs Clear, Normal Breath Sounds Cardiovascular: Normal Peripheral Pulses, Regular Rate, Rhythm, No Edema Peripheral Pulses: 2+: Radial (L), Radial (R) GI/Abdominal: Normal Bowel Sounds Back Exam: Normal Inspection Extremities: Normal Inspection Neurological: Alert, Oriented, CN II-XII Intact Psychiatric: Normal Affect, Normal Mood Skin Exam: Warm, Dry, Intact Lymphatic: No Adenopathy Course - Vital Signs Text/Narrative:: Pt. reports being pain free and refuse transfer to [facility]. All Labs wnl Last Recorded V/S: Last Vital Signs Temp 36.6 C 07/09/17 10:07 Pulse 75 07/09/17 10:46 Resp 16 07/09/17 10:46 BP 146/81 H 07/09/17 10:46 Pulse Ox 99 07/09/17 10:46 - Orders/Labs/Meds Orders: Active Orders 24 hr Category Date Time Status EKG Documentation Completion [RC] STAT Care 07/09/17 10:07 Active Sodium Chloride 0.9% [Normal Saline] 1,000 ml Med 07/09/17 10:15 Active IV ASDIRECTED Medication Orders Sodium Chloride (Normal Saline) 1,000 mls @ 75 mls/hr IV ASDIRECTED THOMPSON Last Admin: 07/09/17 10:09 Dose: 75 mls/hr Labs: Laboratory Tests 07/09/17 07/09/17 07/09/17 Range/Units 10:16 10:16 10:16 WBC 7.2 (5.0-10.0) 10^3/uL RBC 4.33 L (4.6-6.2) 10^6/uL Hgb 12.6 L D (14.0-18.0) g/dL Hct 37.6 L (40.0-54.0) % MCV 86.8 (80-100) fL MCH 29.1 (27.0-34.0) pg MCHC 33.5 (33.0-35.0) g/dL Plt Count 214 (150-450) 10^3/uL Neut % (Auto) 74.9 (42.2-75.2) % Lymph % (Auto) 15.6 L (20.5-50.1) % [place] % (Auto) 6.1 (2-8) % Eos % (Auto) 3.0 (1.0-3.0) % Baso % (Auto) 0.4 (0.0-1.0) % D-Dimer, Quantitative < 100 (0-400) ng/mL Sodium 137 (135-145) mmol/L Potassium 4.3 (3.6-5.0) mmol/L Chloride 99 L (101-111) mmol/L Carbon Dioxide 28.0 (21.0-31.0) mmol/L Anion Gap 14.3 BUN 10 (7-18) mg/dL Creatinine 1.0 (0.6-1.3) mg/dL Est Cr Clr Drug Dosing 81.58 mL/min Estimated GFR (MDRD) > 60 BUN/Creatinine Ratio 10.00 Glucose 209 H (74-105) mg/dL Calcium 9.0 (8.4-10.2) mg/dl Total Bilirubin 0.9 (0.2-1.0) mg/dL AST 21 (10-42) IU/L ALT 16 (10-60) IU/L Alkaline Phosphatase 75 (42-121) IU/L Troponin I < 0.02 (0.00-0.02) ng/ml Total Protein 6.7 (6.7-8.2) g/dl Albumin 3.7 (3.2-5.5) g/dl Globulin 3.0 Albumin/Globulin Ratio 1.23 Urine Color (YELLOW) Urine Appearance (CLEAR) Urine pH (5.0-9.0) Ur Specific [place] (1.005-1.030) Urine Protein (NEGATIVE) Urine Glucose (UA) (NEGATIVE) Urine Ketones (NEGATIVE) Urine Occult Blood (NEGATIVE) Urine Nitrite (NEGATIVE) Urine Bilirubin (NEGATIVE) Urine Urobilinogen (0.2-1.0) mg/dL Ur Leukocyte Esterase (NEGATIVE) Urine RBC /HPF Urine WBC (0-5/HPF) /HPF Ur Epithelial Cells /HPF Urine Bacteria (0-FEW/HPF) /HPF 07/09/ Range/Units 10:32 WBC (5.0-10.0) 10^3/uL RBC (4.6-6.2) 10^6/uL Hgb (14.0-18.0) g/dL Hct (40.0-54.0) % MCV (80-100) fL MCH (27.0-34.0) pg MCHC (33.0-35.0) g/dL Plt Count (150-450) 10^3/uL Neut % (Auto) (42.2-75.2) % Lymph % (Auto) (20.5-50.1) % [place] % (Auto) (2-8) % Eos % (Auto) (1.0-3.0) % Baso % (Auto) (0.0-1.0) % D-Dimer, Quantitative (0-400) ng/mL Sodium (135-145) mmol/L Potassium (3.6-5.0) mmol/L Chloride (101-111) mmol/L Carbon Dioxide (21.0-31.0) mmol/L Anion Gap BUN (7-18) mg/dL Creatinine (0.6-1.3) mg/dL Est Cr Clr Drug Dosing mL/min Estimated GFR (MDRD) BUN/Creatinine Ratio Glucose (74-105) mg/dL Calcium (8.4-10.2) mg/dl Total Bilirubin (0.2-1.0) mg/dL AST (10-42) IU/L ALT (10-60) IU/L Alkaline Phosphatase (42-121) IU/L Troponin I (0.00-0.02) ng/ml Total Protein (6.7-8.2) g/dl Albumin (3.2-5.5) g/dl Globulin Albumin/Globulin Ratio Urine Color Yellow (YELLOW) Urine Appearance Clear (CLEAR) Urine pH 7.0 (5.0-9.0) Ur Specific [place] 1.015 (1.005-1.030) Urine Protein >=300 H (NEGATIVE) Urine Glucose (UA) 250 H (NEGATIVE) Urine Ketones Negative (NEGATIVE) Urine Occult Blood Negative (NEGATIVE) Urine Nitrite Negative (NEGATIVE) Urine Bilirubin Negative (NEGATIVE) Urine Urobilinogen 0.2 (0.2-1.0) mg/dL Ur Leukocyte Esterase Negative (NEGATIVE) Urine RBC 0-5 /HPF Urine WBC 0-5 (0-5/HPF) /HPF Ur Epithelial Cells Rare /HPF Urine Bacteria Not seen (0-FEW/HPF) /HPF Meds: Medications Generic Name Dose Route Start Last Admin Trade Name Freq PRN Reason Stop Dose Admin Sodium Chloride 1,000 mls @ 75 mls/hr 07/09/17 10:15 07/09/17 10:09 Normal Saline IV 75 mls/hr ASDIRECTED THOMPSON Administration Departure - Departure Time of Disposition: 11:17 Disposition: Home, Self-Care 01 Condition: Good Clinical Impression: Atypical chest pain Instructions: Nonspecific Chest Pain, [id number] Forms: ED Department Discharge Additional Instructions: Rest Take Medication as prescribed F/U w/ PCP and Cardiology - My Orders Last 24 Hours: My Active Orders 07/09/17 10:07 EKG Documentation Completion [RC] STAT 07/09/17 10:15 Sodium Chloride 0.9% [Normal Saline] 1,000 ml IV ASDIRECTED - Assessment/Plan Last 24 Hours: My Active Orders 07/09/17 10:07 EKG Documentation Completion [RC] STAT 07/09/17 10:15 Sodium Chloride 0.9% [Normal Saline] 1,000 ml IV ASDIRECTED
[2017-07-09] MEDS ORDERED: Sodium Chloride 0.9% 1,000 ML IV SCH (10:15)
--- NOTE | 2017-07-09 10:39 | CR ---
Clinical history: 61-year-old male chest pain. Interpretation: Slight shaggy accentuation central lung markings but no focal lobar pneumonia or sign s of atelectasis/collapse. Normal cardiac silhouette and bony thorax. No cephalization of vascular flow, signs of alveolar edema or dependent pleural effusion. No lung mass or hilar lymphadenopathy. No pneumothorax. CONCLUSION: No acute new cardiopulmonary abnormality since 21 February 2017 exam.
[2017-07-09 10:44] LABS: CHLORIDE,CL 99 mmol/L (101-111); SODIUM,NA 137 mmol/L (135-145)
[2017-07-09 10:47] VITALS: BP 146/81
--- NOTE | 2017-07-14 07:39 | EKG ---
07/09/2017- JESSE GILLETTE - EKG, per my reading, shows sinus rhythm at a rate of 73 with SD interval of 264. [facility] /[id number]
== END 2017-07-09 11:36 | disposition home or self-care (01) ==
LOC: DL.ED 10:02
DX: R07.89 Other chest pain (principal); I10 Essential (primary) hypertension; I25.10 Atherosclerotic heart disease of native coronary artery without angina pectoris; E11.42 Type 2 diabetes mellitus with diabetic polyneuropathy; Z87.891 Personal history of nicotine dependence; Z79.82 Long term (current) use of aspirin; Z79.84 Long term (current) use of oral hypoglycemic drugs; Z79.02 Long term (current) use of antithrombotics/antiplatelets; Z79.899 Other long term (current) drug therapy; Z91.030 Bee allergy status; Z95.5 Presence of coronary angioplasty implant and graft
CPT/HCPCS: 36415; 71010; 80053; 81001; 84484; 85025; 85379; 93005; 96360; 99285; J7030

== ENCOUNTER 2017-07-12 12:32 | Emergency (ER) | payer OTHER ==
[2017-07-12] MEDS ORDERED: Sodium Chloride 0.9% 10 ML Syringe FLUSH PRN (12:41)
[2017-07-12 13:32] LABS: CHLORIDE,CL 104 mmol/L (101-111); SODIUM,NA 139 mmol/L (135-145)
[2017-07-12] MEDS ORDERED: Levofloxacin 500 MG Tab PO ONE (14:19)
[2017-07-12 14:29] VITALS: BP 180/88
--- NOTE | 2017-07-12 14:36 | EDM.PDOC ---
Scribed by Barbara Francisco 07/12/17 [id number] for Alek Boston MD ED HPI GENERAL MEDICAL PROBLEM - General Chief Complaint: Respiratory Problem Stated Complaint: RT SIDE CHEST PAIN, COUGHING BLOOD Time Seen by Provider: 07/12/17 12:39 Source of Information: Reports: Patient, RN, RN Notes Reviewed History Limitations: Reports: No Limitations - History of Present Illness INITIAL COMMENTS - FREE TEXT/NARRATIVE: Patient presents to ER with onset of nonproductive cough this morning and now has bloody sputum. He has had right upper chest pain intermittently for one week. He was seen here on July 09 and had a negative cardiac chest pain workup. Denies fever or chills. Denies any unexplained weight loss. Location: Reports: Chest Quality: Reports: Ache Severity: Moderate Improves with: Reports: None Worsens with: Reports: None Associated Symptoms: Reports: No Other Symptoms Right Upper Chest Pain Score (Numeric/FACES): 8 - Related Data Allergies Allergy/AdvReac Type Severity Reaction Status Date / Time venom-honey bee Allergy Difficulty Verified 07/09/17 10:15 [bee venom (honey bee)] Breathing Home Meds: Home Meds Aspirin [Low Dose Aspirin EC] 81 mg PO BEDTIME 07/28/14 [History] Lisinopril 5 mg PO DAILY 07/28/14 [History] Clopidogrel Bisulfate [Clopidogrel] 1 tab PO DAILY 03/19/16 [History] atorvaSTATin Calcium [Atorvastatin Calcium] 20 mg PO DAILY 03/19/16 [History] [place]-3 Fatty Acids [Fish Oil] 2 cap PO BID 05/04/16 [History] Gabapentin [Neurontin] 600 mg PO BID 08/21/16 [History] Isosorbide Mononitrate [Imdur] 60 mg PO BEDTIME 09/24/16 [History] Acetaminophen 325 mg PO Q4HR PRN 02/21/17 [History] Metoprolol Succinate [Toprol XL] 25 mg PO DAILY 02/21/17 [History] metFORMIN [Glucophage] 500 mg PO BIDMEALS 04/04/17 [History] Multivitamin [Multivitamins] 1 each PO DAILY 07/09/17 [History] Saxagliptin HCl [Onglyza] 5 mg PO DAILY 07/09/17 [History] Past Medical History HEENT History: Reports: Other (See Below) Other HEENT History: wears glasses Cardiovascular History: Reports: High Cholesterol, Hypertension, Stents Respiratory History: Reports: Pneumonia, Recurrent Gastrointestinal History: Reports: Other (See Below) Other Gastrointestinal History: [place] HERNIA Genitourinary History: Reports: None Musculoskeletal History: Reports: Arthritis Neurological History: Reports: Neuropathy, Peripheral Psychiatric History: Reports: None Endocrine/Metabolic History: Reports: Diabetes, Type II Hematologic History: Reports: None Immunologic History: Reports: None Oncologic (Cancer) History: Reports: None Dermatologic History: Reports: None - Infectious Disease History Infectious Disease History: Reports: None - Past Surgical History Head Surgeries/Procedures: Reports: None Cardiovascular Surgical History: Reports: Coronary Artery Stent GI Surgical History: Reports: Appendectomy, Cholecystectomy, Hernia Repair/Other Male Surgical History: Reports: None Social & Family History - Family History Family Medical History: Noncontributory - Tobacco Use Smoking Status *Q: Former Smoker Years of Tobacco use: 7 Packs/Tins Daily: 1 Used Tobacco, but Quit: Yes Month Tobacco Last Used: Jun, 2015 Second Hand Smoke Exposure: No - Caffeine Use Caffeine Use: Reports: Coffee, Tea - Alcohol Use Days Per Week of Alcohol Use: 0 - Recreational Drug Use Recreational Drug Use: No ED ROS GENERAL - Review of Systems Review Of Systems: ROS reveals no pertinent complaints other than HPI. ED EXAM, GENERAL - Physical Exam Exam: See Below Exam Limited By: No Limitations General Appearance: Alert, WD/WN, No Apparent Distress Eye Exam: Bilateral Eye: Normal Inspection Ears: Normal External Exam, Normal Canal, Hearing Grossly Normal, Normal TMs Nose: Normal Inspection, Normal Mucosa, No Blood Throat/Mouth: Normal Inspection, Normal Lips, Normal Teeth, Normal Gums, Normal Oropharynx, Normal Voice, No Airway Compromise Head: Atraumatic, Normocephalic Neck: Normal Inspection, Supple, Non-Tender, Full Range of Motion Respiratory/Chest: Other (reproducible right anterior chest wall pain between the right nipple and clavicle. No crepitus. No palpable mass. Right upper rhonchi. Normal lung sounds on right.) Cardiovascular: Normal Peripheral Pulses, Regular Rate, Rhythm, No Edema, No Gallop, No JVD, No Murmur, No Rub GI/Abdominal: Normal Bowel Sounds, Soft, Non-Tender, No Organomegaly, No Distention, No Abnormal Bruit, No Mass (Male) Exam: Deferred Rectal (Males) Exam: Deferred Back Exam: Normal Inspection, Full Range of Motion, NT Extremities: Normal Inspection Neurological: Alert, Oriented, CN II-XII Intact, Normal Cognition, Normal Gait, Normal Reflexes, No Motor/Sensory Deficits Psychiatric: Anxious Skin Exam: Warm, Dry, Intact, Normal Color, No Rash Lymphatic: No Adenopathy EKG INTERPRETATION EKG Date: 07/12/17 Time: 12:44 Rhythm: Other (sinus rhythm) Rate (Beats/Min): 74 [place]: LAD-Left [place] Deviation P-Wave: Present QRS: Other (first degree AV block) ST-T: Normal QT: Normal Course - Vital Signs Last Recorded V/S: Last Vital Signs Temp 36.9 C 07/12/17 14:29 Pulse 77 07/12/17 14:29 Resp 14 07/12/17 14:29 BP 180/88 H 07/12/17 14:29 Pulse Ox 97 07/12/17 14:29 - Orders/Labs/Meds Orders: Active Orders 24 hr Category Date Time Status EKG 12 Lead [EKG Documentation Completion] [RC] STAT Care 07/12/17 12:42 Active Peripheral IV Care [RC] . DIRECTED Care 07/12/17 12:43 Active Chest wo Cont [CT] Urgent Exams 07/12/17 12:49 Taken CULTURE BLOOD [BC] Stat Lab 07/12/17 12:54 Results CULTURE BLOOD [BC] Stat Lab 07/12/17 13:00 Received Sodium Chloride 0.9% [Saline Flush] Med 07/12/17 12:41 Active 10 ml FLUSH ASDIRECTED PRN Blood Culture x2 Reflex Set [OM.PC] Stat Oth 07/12/17 12:42 Ordered Peripheral IV Insertion Adult [OM.PC] Stat Oth 07/12/17 12:42 Ordered Medication Orders Sodium Chloride (Saline Flush) 10 ml FLUSH ASDIRECTED PRN PRN Reason: Keep Vein Open Last Admin: 07/12/17 12:56 Dose: 10 ml Labs: Laboratory Tests 07/12/17 07/12/17 07/12/17 Range/Units 12:54 13:00 13:00 WBC 7.0 (5.0-10.0) 10^3/uL RBC 4.62 (4.6-6.2) 10^6/uL Hgb 13.4 L (14.0-18.0) g/dL Hct 40.1 (40.0-54.0) % MCV 86.8 (80-100) fL MCH 29.0 (27.0-34.0) pg MCHC 33.4 (33.0-35.0) g/dL Plt Count 233 (150-450) 10^3/uL Neut % (Auto) 70.2 (42.2-75.2) % Lymph % (Auto) 19.4 L (20.5-50.1) % [place] % (Auto) 5.6 (2-8) % Eos % (Auto) 4.4 H (1.0-3.0) % Baso % (Auto) 0.4 (0.0-1.0) % D-Dimer, Quantitative (0-400) ng/mL Sodium 139 (135-145) mmol/L Potassium 5.0 (3.6-5.0) mmol/L Chloride 104 (101-111) mmol/L Carbon Dioxide 26.0 (21.0-31.0) mmol/L Anion Gap 14.0 BUN 18 (7-18) mg/dL Creatinine 1.0 (0.6-1.3) mg/dL Est Cr Clr Drug Dosing 81.58 mL/min Estimated GFR (MDRD) > 60 BUN/Creatinine Ratio 18.00 Glucose 209 H (74-105) mg/dL Lactic Acid 2.7 H (0.5-2.2) mmol/L Calcium 9.0 (8.4-10.2) mg/dl Total Bilirubin 0.5 (0.2-1.0) mg/dL AST 18 (10-42) IU/L ALT 12 (10-60) IU/L Alkaline Phosphatase 83 (42-121) IU/L Troponin I 0.02 (0.00-0.02) ng/ml Total Protein 6.9 (6.7-8.2) g/dl Albumin 3.9 (3.2-5.5) g/dl Globulin 3.0 Albumin/Globulin Ratio 1.30 07/12/17 Range/Units 13:00 WBC (5.0-10.0) 10^3/uL RBC (4.6-6.2) 10^6/uL Hgb (14.0-18.0) g/dL Hct (40.0-54.0) % MCV (80-100) fL MCH (27.0-34.0) pg MCHC (33.0-35.0) g/dL Plt Count (150-450) 10^3/uL Neut % (Auto) (42.2-75.2) % Lymph % (Auto) (20.5-50.1) % [place] % (Auto) (2-8) % Eos % (Auto) (1.0-3.0) % Baso % (Auto) (0.0-1.0) % D-Dimer, Quantitative 115 (0-400) ng/mL Sodium (135-145) mmol/L Potassium (3.6-5.0) mmol/L Chloride (101-111) mmol/L Carbon Dioxide (21.0-31.0) mmol/L Anion Gap BUN (7-18) mg/dL Creatinine (0.6-1.3) mg/dL Est Cr Clr Drug Dosing mL/min Estimated GFR (MDRD) BUN/Creatinine Ratio Glucose (74-105) mg/dL Lactic Acid (0.5-2.2) mmol/L Calcium (8.4-10.2) mg/dl Total Bilirubin (0.2-1.0) mg/dL AST (10-42) IU/L ALT (10-60) IU/L Alkaline Phosphatase (42-121) IU/L Troponin I (0.00-0.02) ng/ml Total Protein (6.7-8.2) g/dl Albumin (3.2-5.5) g/dl Globulin Albumin/Globulin Ratio Meds: Medications Generic Name Dose Route Start Last Admin Trade Name Freq PRN Reason Stop Dose Admin Sodium Chloride 10 ml 07/12/17 12:41 07/12/17 12:56 Saline Flush FLUSH 10 ml ASDIRECTED PRN Administration Keep Vein Open Discontinued Medications Generic Name Dose Route Start Last Admin Trade Name Freq PRN Reason Stop Dose Admin Levofloxacin 500 mg 07/12/17 14:19 Levaquin PO 07/12/17 14:20 ONETIME ONE - Radiology Interpretation Free Text/Narrative:: Chest CT: No definite acute finding to account for recurrent symptoms. There appears to be some minimal scarring or pneumonitis in the right upper lobe inferiorly. Similar changes seen at the left lower level. Plain film follow up to assure no progression recommended in approximately 2-6 weeks, pending clinical course. Follow up subcentimeter nodules. Assuming no known neoplastic history, repeat eval in 12 months. See rad report. Departure - Departure Time of Disposition: 14:20 Disposition: Home, Self-Care 01 Condition: Fair Clinical Impression: Pneumonitis, Hemoptysis, Pulmonary nodules - Discharge Information Instructions: Hemoptysis, [id number], Pneumonitis Forms: ED Department Discharge Additional Instructions: Levaquin 500mg. Followup in clinic this week for recheck. He needs to review with this doctor the CT imaging for follow up as indicated on the report. - My Orders Last 24 Hours: My Active Orders 07/12/17 12:41 Sodium Chloride 0.9% [Saline Flush] 10 ml FLUSH ASDIRECTED PRN 07/12/17 12:42 EKG 12 Lead [EKG Documentation Completion] [RC] STAT Blood Culture x2 Reflex Set [OM.PC] Stat Peripheral IV Insertion Adult [OM.PC] Stat 07/12/17 12:43 Peripheral IV Care [RC] . DIRECTED 07/12/17 12:49 Chest wo Cont [CT] Urgent 07/12/17 12:54 CULTURE BLOOD [BC] Stat 07/12/17 13:00 CULTURE BLOOD [BC] Stat - Assessment/Plan Last 24 Hours: My Active Orders 07/12/17 12:41 Sodium Chloride 0.9% [Saline Flush] 10 ml FLUSH ASDIRECTED PRN 07/12/17 12:42 EKG 12 Lead [EKG Documentation Completion] [RC] STAT Blood Culture x2 Reflex Set [OM.PC] Stat Peripheral IV Insertion Adult [OM.PC] Stat 07/12/17 12:43 Peripheral IV Care [RC] . DIRECTED 07/12/17 12:49 Chest wo Cont [CT] Urgent 07/12/17 12:54 CULTURE BLOOD [BC] Stat 07/12/17 13:00 CULTURE BLOOD [BC] Stat I have read and agree with the documentation that has been completed regarding this visit. By signing this record, I attest that the documentation was completed in my physical presence and is an accurate record of the encounter.
--- NOTE | 2017-07-19 12:53 | EKG ---
07/12/2017 - JESSE GILLETTE - A 12-lead EKG shows normal sinus rhythm with heart rate of 74. First-degree AV block with left axis deviation. No significant ST elevation or ST depression noted on this 12-lead EKG. Nonspecific ST-T wave changes noted on lead V2, V3. [facility] /[id number]
== END 2017-07-12 14:50 | disposition home or self-care (01) ==
LOC: DL.ED 12:32
DX: J18.9 Pneumonia, unspecified organism (principal); R04.2 Hemoptysis; R91.1 Solitary pulmonary nodule; I10 Essential (primary) hypertension; E11.9 Type 2 diabetes mellitus without complications; Z91.030 Bee allergy status; Z79.82 Long term (current) use of aspirin; Z79.899 Other long term (current) drug therapy; Z79.84 Long term (current) use of oral hypoglycemic drugs; Z87.891 Personal history of nicotine dependence
CPT/HCPCS: 36415; 71250; 80053; 83605; 84484; 85025; 85379; 87040; 93005; 99285; A9270; J7050; 93010

== ENCOUNTER 2017-10-14 17:25 | Observation (INO) | payer OTHER ==
--- NOTE | 2017-10-14 17:44 | EDM.PDOC ---
ED HPI GENERAL MEDICAL PROBLEM - General Chief Complaint: Respiratory Problem Stated Complaint: POSSIBLE PNEUMONIA Time Seen by Provider: 10/14/17 17:41 Source of Information: Reports: Patient, Old Records, Provider, RN, RN Notes Reviewed History Limitations: Reports: No Limitations - History of Present Illness INITIAL COMMENTS - FREE TEXT/NARRATIVE: C/O onset of fever, chills, cough w/thick sputum production and sore throat yesterday. Denies abd. pain, N/V, or shortness of breath. 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 Onset: Gradual Duration: Constant, Getting Worse Location: Reports: Chest Severity: Severe Improves with: Reports: None Worsens with: Reports: None Associated Symptoms: Reports: No Other Symptoms - Related Data Allergies Allergy/AdvReac Type Severity Reaction Status Date / Time venom-honey bee Allergy Difficulty Verified 07/09/17 10:15 [bee venom (honey bee)] Breathing Home Meds: Home Meds Aspirin [Low Dose Aspirin EC] 81 mg PO BEDTIME 07/28/14 [History] Lisinopril 5 mg PO DAILY 07/28/14 [History] Clopidogrel Bisulfate [Clopidogrel] 1 tab PO DAILY 03/19/16 [History] atorvaSTATin Calcium [Atorvastatin Calcium] 20 mg PO DAILY 03/19/16 [History] [place]-3 Fatty Acids [Fish Oil] 2 cap PO BID 05/04/16 [History] Gabapentin [Neurontin] 600 mg PO BID 08/21/16 [History] Isosorbide Mononitrate [Imdur] 60 mg PO BEDTIME 09/24/16 [History] Acetaminophen 325 mg PO Q4HR PRN 02/21/17 [History] Metoprolol Succinate [Toprol XL] 25 mg PO DAILY 02/21/17 [History] metFORMIN [Glucophage] 500 mg PO BIDMEALS 04/04/17 [History] Multivitamin [Multivitamins] 1 each PO DAILY 07/09/17 [History] Saxagliptin HCl [Onglyza] 5 mg PO DAILY 07/09/17 [History] Past Medical History HEENT History: Reports: Other (See Below) Other HEENT History: wears glasses Cardiovascular History: Reports: High Cholesterol, Hypertension, Stents Respiratory History: Reports: Pneumonia, Recurrent Gastrointestinal History: Reports: Other (See Below) Other Gastrointestinal History: [place] HERNIA Genitourinary History: Reports: None Musculoskeletal History: Reports: Arthritis Neurological History: Reports: Neuropathy, Peripheral Psychiatric History: Reports: None Endocrine/Metabolic History: Reports: Diabetes, Type II Hematologic History: Reports: None Immunologic History: Reports: None Oncologic (Cancer) History: Reports: None Dermatologic History: Reports: None - Infectious Disease History Infectious Disease History: Reports: None - Past Surgical History Head Surgeries/Procedures: Reports: None Cardiovascular Surgical History: Reports: Coronary Artery Stent GI Surgical History: Reports: Appendectomy, Cholecystectomy, Hernia Repair/Other Male Surgical History: Reports: None Social & Family History - Family History Family Medical History: Noncontributory - Tobacco Use Smoking Status *Q: Former Smoker Years of Tobacco use: 7 Packs/Tins Daily: 1 Used Tobacco, but Quit: Yes Month Tobacco Last Used: Jun, 2015 Second Hand Smoke Exposure: No - Caffeine Use Caffeine Use: Reports: Coffee, Tea - Alcohol Use Days Per Week of Alcohol Use: 0 - Recreational Drug Use Recreational Drug Use: No - Living Situation & Occupation Living situation: Reports: with Family ED ROS GENERAL - Review of Systems Review Of Systems: ROS reveals no pertinent complaints other than HPI. ED EXAM, GENERAL - Physical Exam Exam: See Below Exam Limited By: No Limitations General Appearance: Alert, WD/WN, No Apparent Distress, Other (acutely ill, but non-toxic appearing) Eye Exam: Bilateral Eye: Normal Inspection Ears: Normal External Exam, Hearing Grossly Normal Nose: Normal Inspection Throat/Mouth: Normal Lips, Normal Teeth, Normal Gums, Normal Voice, No Airway Compromise, Other (dry oral membranes, mild pharyngeal erythema) Head: Atraumatic, Normocephalic Neck: Normal Inspection, Supple, Non-Tender, Full Range of Motion. No: Lymphadenopathy (L), Lymphadenopathy (R) Respiratory/Chest: No Respiratory Distress, No Accessory Muscle Use, Decreased Breath Sounds, Rhonchi (L>Rt), Wheezing (mild scattered wheezes, improved following DuoNeb HHN), Other (moist cough) Cardiovascular: Regular Rate, Rhythm, No Edema, Tachycardia GI/Abdominal: Normal Bowel Sounds, Soft, Non-Tender, No Distention (Male) Exam: Deferred Rectal (Males) Exam: Deferred Back Exam: Normal Inspection. No: CVA Tenderness (L), CVA Tenderness (R) Extremities: Normal Inspection, Normal Range of Motion, Non-Tender, No Pedal Edema Neurological: Alert, Oriented, CN II-XII Intact, Normal Cognition, Normal Gait, No Motor/Sensory Deficits Psychiatric: Normal Affect, Normal Mood Skin Exam: Warm, Dry, Intact, Normal Color, No Rash Course - Vital Signs Last Recorded V/S: Last Vital Signs Temp 39.8 C H 10/14/17 19:01 Pulse 108 H 10/14/17 17:39 Resp 24 H 10/14/17 17:39 BP 163/87 H 10/14/17 17:39 Pulse Ox 98 10/14/17 17:39 - Orders/Labs/Meds Orders: Active Orders 24 hr Category Date Time Status Peripheral IV Care [RC] . DIRECTED Care 10/14/17 17:59 Active RT Aerosol Therapy [] ASDIRECTED Care 10/14/17 18:00 Active CULTURE BLOOD [] Stat Lab 10/14/17 18:11 Received CULTURE BLOOD [] Stat Lab 10/14/17 18:11 Received CULTURE SPUTUM + SMEAR [] Stat Lab 10/14/17 18:06 Received CULTURE STREP A CONFIRMATION [] Stat Lab 10/14/17 18:24 Results STREP SCRN A RAPID W CULT CONF [] Stat Lab 10/14/17 18:24 Results UA W/MICROSCOPIC [URIN] Stat Lab 10/14/17 17:57 Ordered Azithromycin [Zithromax] 500 mg Med 10/14/17 19:05 Ordered Sodium Chloride 0.9% [Normal Saline] 250 ml IV ONETIME Ibuprofen [Motrin] Med 10/14/17 19:06 Once 800 mg PO ONETIME ONE Sodium Chloride 0.9% [Saline Flush] Med 10/14/17 17:59 Active 10 ml FLUSH ASDIRECTED PRN cefTRIAXone [Rocephin] Med 10/14/17 19:05 Once 1 gm IVPUSH ONETIME ONE Blood Culture x2 Reflex Set [OM.PC] Stat Oth 10/14/17 17:57 Ordered Peripheral IV Insertion Adult [OM.PC] Stat Oth 10/14/17 17:57 Ordered Medication Orders Sodium Chloride (Saline Flush) 10 ml FLUSH ASDIRECTED PRN PRN Reason: Keep Vein Open Last Admin: 10/14/17 18:07 Dose: 10 ml Labs: Laboratory Tests 10/14/17 10/14/17 10/14/17 Range/Units 18:11 18:11 18:11 WBC 8.7 (5.0-10.0) 10^3/uL RBC 4.85 (4.6-6.2) 10^6/uL Hgb 14.2 (14.0-18.0) g/dL Hct 42.3 (40.0-54.0) % MCV 87.2 (80-100) fL MCH 29.3 (27.0-34.0) pg MCHC 33.6 (33.0-35.0) g/dL Plt Count 197 (150-450) 10^3/uL Neut % (Auto) 86.3 H (42.2-75.2) % Lymph % (Auto) 5.5 L (20.5-50.1) % [place] % (Auto) 7.9 (2-8) % Eos % (Auto) 0.2 L (1.0-3.0) % Baso % (Auto) 0.1 (0.0-1.0) % Sodium 134 L (135-145) mmol/L Potassium 3.7 (3.6-5.0) mmol/L Chloride 100 L (101-111) mmol/L Carbon Dioxide 25.0 (21.0-31.0) mmol/L Anion Gap 12.7 BUN 11 (7-18) mg/dL Creatinine 1.2 (0.6-1.3) mg/dL Est Cr Clr Drug Dosing 67.98 mL/min Estimated GFR (MDRD) > 60 BUN/Creatinine Ratio 9.16 Glucose 268 H (74-105) mg/dL Lactic Acid 2.4 H (0.5-2.2) mmol/L Calcium 8.4 (8.4-10.2) mg/dl Total Bilirubin 0.5 (0.2-1.0) mg/dL AST 26 (10-42) IU/L ALT 17 (10-60) IU/L Alkaline Phosphatase 77 (42-121) IU/L B-Natriuretic Peptide 38 (0-100) pg/ml Total Protein 7.3 (6.7-8.2) g/dl Albumin 3.9 (3.2-5.5) g/dl Globulin 3.4 Albumin/Globulin Ratio 1.15 Meds: Medications Generic Name Dose Route Start Last Admin Trade Name Cjq PRN Reason Stop Dose Admin Sodium Chloride 10 ml 10/14/17 17:59 10/14/17 18:07 Saline Flush FLUSH 10 ml ASDIRECTED PRN Administration Keep Vein Open Discontinued Medications Generic Name Dose Route Start Last Admin Trade Name Cjq PRN Reason Stop Dose Admin Acetaminophen 1,000 mg 10/14/17 17:51 10/14/17 17:59 Tylenol Extra Strength PO 10/14/17 17:52 1,000 mg ONETIME ONE Administration Albuterol/Ipratropium 3 ml 10/14/17 18:00 10/14/17 18:12 Duoneb 3.0-0.5 Mg/3 Ml NEB 10/14/17 18:01 3 ml ONETIME ONE Administration Sodium Chloride 1,000 mls @ 999 mls/hr 10/14/17 18:00 10/14/17 18:11 Normal Saline IV 10/14/17 19:00 999 mls/hr .BOLUS ONE Administration - Radiology Interpretation Free Text/Narrative:: CXR: no focal consolidation, see Rad. report. Departure - Departure Time of Disposition: 19:07 (admitted to Dr. Joseph) Disposition: Refer to Observation Condition: Serious Clinical Impression: Pneumonia Qualifiers: Pneumonia type: due to unspecified organism Laterality: unspecified laterality Lung location: unspecified part of lung Qualified Code(s): J18.9 - Pneumonia, unspecified organism - Discharge Information Forms: ED Department Discharge - My Orders Last 24 Hours: My Active Orders 10/14/17 17:57 UA W/MICROSCOPIC [URIN] Stat Blood Culture x2 Reflex Set [OM.PC] Stat Peripheral IV Insertion Adult [OM.PC] Stat 10/14/17 17:59 Peripheral IV Care [RC] . DIRECTED Sodium Chloride 0.9% [Saline Flush] 10 ml FLUSH ASDIRECTED PRN 10/14/17 18:00 RT Aerosol Therapy [RC] ASDIRECTED 10/14/17 18:06 CULTURE SPUTUM + SMEAR [RM] Stat 10/14/17 18:11 CULTURE BLOOD [BC] Stat CULTURE BLOOD [BC] Stat 10/14/17 18:24 CULTURE STREP A CONFIRMATION [RM] Stat STREP SCRN A RAPID W CULT CONF [RM] Stat 10/14/17 19:05 Azithromycin [Zithromax] 500 mg Sodium Chloride 0.9% [Normal Saline] 250 ml IV ONETIME cefTRIAXone [Rocephin] 1 gm IVPUSH ONETIME ONE 10/14/17 19:06 Ibuprofen [Motrin] 800 mg PO ONETIME ONE - Assessment/Plan Last 24 Hours: My Active Orders 10/14/17 17:57 UA W/MICROSCOPIC [URIN] Stat Blood Culture x2 Reflex Set [OM.PC] Stat Peripheral IV Insertion Adult [OM.PC] Stat 10/14/17 17:59 Peripheral IV Care [RC] . DIRECTED Sodium Chloride 0.9% [Saline Flush] 10 ml FLUSH ASDIRECTED PRN 10/14/17 18:00 RT Aerosol Therapy [RC] ASDIRECTED 10/14/17 18:06 CULTURE SPUTUM + SMEAR [RM] Stat 10/14/17 18:11 CULTURE BLOOD [BC] Stat CULTURE BLOOD [BC] Stat 10/14/17 18:24 CULTURE STREP A CONFIRMATION [RM] Stat STREP SCRN A RAPID W CULT CONF [RM] Stat 10/14/17 19:05 Azithromycin [Zithromax] 500 mg Sodium Chloride 0.9% [Normal Saline] 250 ml IV ONETIME cefTRIAXone [Rocephin] 1 gm IVPUSH ONETIME ONE 10/14/17 19:06 Ibuprofen [Motrin] 800 mg PO ONETIME ONE
[2017-10-14] MEDS ORDERED: Acetaminophen 500 MG Tab PO ONE (17:51)
[2017-10-14] MEDS ORDERED: Sodium Chloride 0.9% 10 ML Syringe FLUSH PRN (17:59)
[2017-10-14] MEDS ORDERED: Sodium Chloride 0.9% 1,000 ML IV ONE (18:00)
[2017-10-14] MEDS ORDERED: Albuterol/Ipratropium 3.0-0.5 MG/3 ML Neb Soln NEB ONE (18:00)
[2017-10-14 18:51] LABS: CHLORIDE,CL 100 mmol/L (101-111); SODIUM,NA 134 mmol/L (135-145)
[2017-10-14] MEDS ORDERED: Azithromycin 500 MG in Sodium Chloride 0.9% 250 ML IV ONE (19:05)
[2017-10-14] MEDS ORDERED: cefTRIAXone 1 GM Vial IVPUSH ONE (19:05)
[2017-10-14] MEDS ORDERED: Ibuprofen 800 MG Tab PO ONE (19:06)
[2017-10-14] MEDS ORDERED: Ondansetron 4 MG/2 ML SDV IVPUSH PRN (20:29)
[2017-10-14] MEDS ORDERED: Albuterol/Ipratropium 3.0-0.5 MG/3 ML Neb Soln NEB PRN (20:29)
[2017-10-14] MEDS ORDERED: Docusate Sodium 100 MG Cap PO PRN (20:29)
--- NOTE | 2017-10-14 20:40 | PCM.HP ---
H&P History of Present Illness - General Date of Service: 10/14/17 Admit Problem/Dx: Admission Diagnosis/Problem Admission Diagnosis/Problem Left lower lobe pneumonia Source of Information: Patient History Limitations: Reports: No Limitations - History of Present Illness Initial Comments - Free Text/Narative: 61 yo M with PMH of CAD, type 2 diabetes mellitus, HLD who presents with shortness of breath and cough of two days duration. Symptoms of cough and shortness of breath started two days ago. Cough is productive of yellowish sputum Also had high grade fever, malaise and prostration. Experiences some pleuritic chest pain with the cough on the left lower chest. No urinary frequency or dysuria. No abdominal pain. Onset of Symptoms: Reports: Other (yesterday) Associated Symptoms: Reports: Cough, cough w sputum, Malaise - Related Data Allergies/Adverse Reactions: Allergies Allergy/AdvReac Type Severity Reaction Status Date / Time venom-honey bee Allergy Difficulty Verified 07/09/17 10:15 [bee venom (honey bee)] Breathing Home Medications: Home Meds Aspirin [Low Dose Aspirin EC] 81 mg PO BEDTIME 07/28/14 [History] Lisinopril 5 mg PO DAILY 07/28/14 [History] Clopidogrel Bisulfate [Clopidogrel] 1 tab PO DAILY 03/19/16 [History] atorvaSTATin Calcium [Atorvastatin Calcium] 20 mg PO DAILY 03/19/16 [History] [place]-3 Fatty Acids [Fish Oil] 2 cap PO BID 05/04/16 [History] Gabapentin [Neurontin] 600 mg PO BID 08/21/16 [History] Isosorbide Mononitrate [Imdur] 60 mg PO BEDTIME 09/24/16 [History] Acetaminophen 325 mg PO Q4HR PRN 02/21/17 [History] Metoprolol Succinate [Toprol XL] 25 mg PO DAILY 02/21/17 [History] metFORMIN [Glucophage] 500 mg PO BIDMEALS 04/04/17 [History] Multivitamin [Multivitamins] 1 each PO DAILY 07/09/17 [History] Saxagliptin HCl [Onglyza] 5 mg PO DAILY 07/09/17 [History] Past Medical History HEENT History: Reports: Other (See Below) Other HEENT History: wears glasses Cardiovascular History: Reports: High Cholesterol, Hypertension, Stents Respiratory History: Reports: Pneumonia, Recurrent Gastrointestinal History: Reports: Other (See Below) Other Gastrointestinal History: [place] HERNIA Genitourinary History: Reports: None Musculoskeletal History: Reports: Arthritis Neurological History: Reports: Neuropathy, Peripheral Psychiatric History: Reports: None Endocrine/Metabolic History: Reports: Diabetes, Type II Hematologic History: Reports: None Immunologic History: Reports: None Oncologic (Cancer) History: Reports: None Dermatologic History: Reports: None - Infectious Disease History Infectious Disease History: Reports: None - Past Surgical History Head Surgeries/Procedures: Reports: None Cardiovascular Surgical History: Reports: Coronary Artery Stent GI Surgical History: Reports: Appendectomy, Cholecystectomy, Hernia Repair/Other Male Surgical History: Reports: None Social & Family History - Family History Family Medical History: Noncontributory - Tobacco Use Smoking Status *Q: Former Smoker Years of Tobacco use: 7 Packs/Tins Daily: 1 Used Tobacco, but Quit: Yes Month Tobacco Last Used: Jun, 2015 Second Hand Smoke Exposure: No - Caffeine Use Caffeine Use: Reports: Coffee, Tea - Alcohol Use Days Per Week of Alcohol Use: 0 - Recreational Drug Use Recreational Drug Use: No - Living Situation & Occupation Living situation: Reports: with Family H&P Review of Systems - Review of Systems: Review Of Systems: ROS reveals no pertinent complaints other than HPI. Exam - Exam Exam: See Below - Vital Signs Vital Signs: Last Vital Signs Temp 38.2 C H 10/14/17 19:51 Pulse 107 H 10/14/17 19:51 Resp 20 10/14/17 19:51 BP 129/79 10/14/17 19:51 Pulse Ox 98 10/14/17 19:51 Weight: 93.259 kg - Exam General: Alert, Oriented, 4 HEENT: PERRLA, Hearing Intact, Mucosa Moist & [place], Nares Patent, Normal Nasal Septum, Posterior Pharynx Clear, Conjunctiva Clear, EOMI, EACs Clear, TMs Clear Neck: Supple, Trachea Midline, 2 Lungs: Crackles (in left lower chest) Cardiovascular: Regular Rate GI/Abdominal Exam: Normal Bowel Sounds, Soft, Non-Tender, No Organomegaly, No Distention, No Abnormal Bruit, No Mass, Pelvis Stable - Patient Data Result Diagrams: 10/14/17 18:11 10/14/17 18:11 EKG INTERPRETATION Rhythm: NSR *Q Meaningful Use (ADM) - VTE *Q VTE Criteria *Q: - Stroke *Q Stroke Criteria *Q: - AMI *Q AMI Criteria *Q: - Problem List (1) Pneumonia SNOMED Code(s): 244032613 ICD Code: J18.9 - PNEUMONIA, UNSPECIFIED ORGANISM Status: Acute Current Visit: Yes Qualifiers: Pneumonia type: due to unspecified organism Laterality: unspecified laterality Lung location: unspecified part of lung Qualified Code(s): J18.9 - Pneumonia, unspecified organism (2) Diabetes SNOMED Code(s): 60857863 ICD Code: E11.9 - TYPE 2 DIABETES MELLITUS WITHOUT COMPLICATIONS Status: Acute Current Visit: No Qualifiers: Diabetes mellitus type: type 2 Diabetes mellitus complication status: without complication 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 [employer]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 use: unspecified assisted insulin use status Qualified Code(s): E11.9 - Type 2 diabetes mellitus without complications Problem List Initiated/Reviewed/Updated: Yes Orders Last 24hrs: Active Orders 24 hr Category Date Time Status Patient Status [ADT] Routine ADT 10/14/17 20:29 Ordered Accu Check [Blood Glucose Check, Bedside] [RC] TIDMEALS Care 10/14/17 20:37 Ordered Ambulate [RC] ASDIRECTED Care 10/14/17 20:29 Ordered Intake and Output [RC] QSHIFT Care 10/14/17 20:31 Ordered May Shower [RC] ASDIRECTED Care 10/14/17 20:29 Ordered Oxygen Therapy [RC] PRN Care 10/14/17 20:29 Ordered RT Aerosol Therapy [RC] ASDIRECTED Care 10/14/17 20:33 Ordered Up ad Odalis [RC] ASDIRECTED Care 10/14/17 20:29 Ordered VTE/DVT Education [RC] PER UNIT ROUTINE Care 10/14/17 20:29 Ordered Vital Signs [RC] Q4H Care 10/14/17 20:29 Ordered Consistent Carbohydrate Diet [DIET] Diet 10/14/17 Dinner Ordered BASIC METABOLIC PANEL,BMP [CHEM] AM Lab 10/15/17 05:11 Ordered CBC WITH AUTO DIFF [HEME] AM Lab 10/15/17 05:11 Ordered CULTURE SPUTUM + SMEAR [RM] Routine Lab 10/14/17 20:27 Ordered Acetaminophen [Tylenol] Med 10/14/17 20:29 Ordered 650 mg PO Q4H PRN Albuterol/Ipratropium [DuoNeb 3.0-0.5 MG/3 ML] Med 10/14/17 20:29 Ordered 3 ml NEB Q4H PRN Aspirin [Halfprin] Med 10/14/17 21:00 Ordered 81 mg PO BEDTIME Clopidogrel [Plavix] Med 10/15/17 09:00 Ordered 1 tab PO DAILY Docusate Sodium [Colace] Med 10/14/17 20:29 Ordered 100 mg PO BID PRN Enoxaparin [Lovenox] Med 10/14/17 20:30 Ordered 40 mg SUBCUT DAILY Gabapentin Med 10/14/17 21:00 Ordered 600 mg PO BID Ibuprofen [Motrin] Med 10/14/17 20:29 Ordered 400 mg PO Q6H PRN Insulin Aspart [NovoLOG] Med 10/15/17 08:00 Ordered See Protocol SUBCUT TIDMEALS Isosorbide Mononitrate [Imdur] Med 10/14/17 21:00 Ordered 60 mg PO BEDTIME Lisinopril [Prinivil] Med 10/15/17 09:00 Ordered 5 mg PO DAILY Metoprolol Succinate [Toprol XL] Med 10/15/17 09:00 Ordered 25 mg PO DAILY Multivitamin [Multivitamins] Med 10/15/17 09:00 Ordered 1 each PO DAILY [place]-3 Fatty Acids [Fish Oil] Med 10/14/17 21:00 Ordered 2 cap PO BID Ondansetron [Zofran] Med 10/14/17 20:29 Ordered 4 mg IVPUSH Q4H PRN Sodium Chloride 0.9% @ 125 MLS/HR (1000ml) Med 10/14/17 20:30 Ordered Sodium Chloride 0.9% [Normal Saline] 1,000 ml IV ASDIRECTED atorvaSTATin [Lipitor] Med 10/15/17 09:00 Ordered 20 mg PO DAILY oxyCODONE Med 10/14/17 20:29 Ordered 5 mg PO Q4H PRN Resuscitation Status Routine Resus Stat 10/14/17 20:29 Ordered Medication Orders Acetaminophen (Tylenol) 650 mg PO Q4H PRN PRN Reason: Fever Albuterol/Ipratropium (Duoneb 3.0-0.5 Mg/3 Ml) 3 ml NEB Q4H PRN PRN Reason: shortness of breath/wheezing Aspirin (Halfprin) 81 mg PO BEDTIME [facility] Atorvastatin Calcium (Lipitor) 20 mg PO DAILY [facility] Clopidogrel Bisulfate (Plavix) mg PO DAILY [facility] Docusate Sodium (Colace) 100 mg PO BID PRN PRN Reason: Constipation Enoxaparin Sodium (Lovenox) 40 mg SUBCUT DAILY [facility] Sodium Chloride (Normal Saline) 1,000 mls @ 125 mls/hr IV ASDIRECTED [facility] Ibuprofen (Motrin) 400 mg PO Q6H PRN PRN Reason: Pain (mild 1-3) Insulin Aspart (Novolog) 0 unit SUBCUT TIDMEALS [facility] PRN Reason: Protocol Isosorbide Mononitrate (Imdur) 60 mg PO BEDTIME [facility] Lisinopril (Prinivil) 5 mg PO DAILY [facility] Metoprolol Succinate (Toprol Xl) 25 mg PO DAILY [facility] Non-Formulary Medication (Gabapentin) 600 mg PO BID [facility] Non-Formulary Medication (Multivitamin [Multivitamins]) 1 each PO DAILY [facility] Non-Formulary Medication ([place]-3 Fatty Acids [Fish Oil]) 2 cap PO BID [facility] Ondansetron HCl (Zofran) 4 mg IVPUSH Q4H PRN PRN Reason: Nausea/Vomiting Oxycodone HCl (Oxycodone) 5 mg PO Q4H PRN PRN Reason: Pain (moderate 4-6) Sodium Chloride (Saline Flush) 10 ml FLUSH ASDIRECTED PRN PRN Reason: Keep Vein Open Last Admin: 10/14/17 18:07 Dose: 10 ml Assessment/Plan Comment:: 61 yo M with PMH of DM, CAD p/w cough, SOB. # Left lower lobe pneumonia IV ceftriaxone + azithromycin Sputum culture, blood culture # DM 2 accuchecks, insulin sliding scale hold metformin, saxigliptin carb controlled diet # DVT ppx SC lovenox
[2017-10-14] MEDS: Enoxaparin 40 MG/0.4 ML Syringe SUBCUT SCH (21:26)
[2017-10-14] MEDS: oxyCODONE 5 MG Tab PO PRN (21:27)
[2017-10-14] MEDS: Gabapentin 300 MG Cap PO SCH (21:27)
[2017-10-14] MEDS: Aspirin 81 MG Tab.EC PO SCH (21:27)
[2017-10-14] MEDS: Isosorbide Mononitrate 60 MG Tab.ER PO SCH (21:27)
[2017-10-14] MEDS: Sodium Chloride 0.9% 1,000 ML IV SCH (21:31)
[2017-10-14] MEDS: Ibuprofen 400 MG Tab PO PRN (22:26)
[2017-10-15] MEDS: Sodium Chloride 0.9% 1,000 ML IV SCH ×3 (05:06→21:12)
[2017-10-15 07:02] LABS: CHLORIDE,CL 107 mmol/L (101-111); SODIUM,NA 138 mmol/L (135-145)
[2017-10-15] MEDS: oxyCODONE 5 MG Tab PO PRN ×3 (08:01→18:31)
[2017-10-15] MEDS: Acetaminophen 325 MG Tab PO PRN ×3 (08:02→18:31)
[2017-10-15] MEDS: Insulin Aspart 100 Units/ML 3 ML Pen SUBCUT SCH ×3 (08:06→17:21)
[2017-10-15] MEDS: Multivitamins,Therapeutic Tab PO SCH (08:26)
[2017-10-15] MEDS: Lisinopril 5 MG Tab PO SCH (08:27)
[2017-10-15] MEDS: Clopidogrel 75 MG Tab PO SCH (08:27)
[2017-10-15] MEDS: Azithromycin 250 MG Tab PO SCH (08:27)
[2017-10-15] MEDS: Metoprolol Succinate 25 MG Tab.ER PO SCH (08:28)
[2017-10-15] MEDS: Gabapentin 300 MG Cap PO SCH ×2 (08:28→21:07)
[2017-10-15] MEDS: atorvaSTATin 20 MG Tab PO SCH (08:28)
[2017-10-15] MEDS: Enoxaparin 40 MG/0.4 ML Syringe SUBCUT SCH (08:29)
--- NOTE | 2017-10-15 09:58 | PCM.PN ---
- General Info Date of Service: 10/15/17 Admission Dx/Problem (Free Text): Admission Diagnosis/Problem Admission Diagnosis/Problem Left lower lobe pneumonia Subjective Update: 61 yo with PMH of DM admitted with left lower lobe pneumonia. Patient seen and examined by me. Overnight, O2 nasally placed for patient comfort. Sats okay Still has SOB and cough. - Review of Systems General: Reports: No Symptoms HEENT: Reports: No Symptoms Pulmonary: Reports: Shortness of Breath, Pleuritic Chest Pain, Cough, Sputum Cardiovascular: Reports: No Symptoms Gastrointestinal: Reports: No Symptoms Genitourinary: Reports: No Symptoms Musculoskeletal: Reports: No Symptoms - Patient Data Vitals - Most Recent: Last Vital Signs Temp 37.3 C 10/15/17 07:00 Pulse 80 10/15/17 08:28 Resp 20 10/15/17 07:00 BP 120/59 L 10/15/17 08:28 Pulse Ox 99 10/15/17 07:00 Weight - Most Recent: 93.259 kg I&O - Last 24 Hours: Intake & Output 10/14/17 10/15/17 10/15/17 22:59 06:59 14:59 Intake Total 700 1060 Output Total 800 600 400 Balance -100 -600 660 Lab Results Last 24 Hours: Laboratory Results - last 24 hr 10/14/17 10/15/17 10/15/17 Range/Units 21:10 06:29 06:29 WBC 8.4 (5.0-10.0) 10^3/uL RBC 3.73 L (4.6-6.2) 10^6/uL Hgb 11.0 L D (14.0-18.0) g/dL Hct 32.8 L (40.0-54.0) % MCV 87.9 (80-100) fL MCH 29.5 (27.0-34.0) pg MCHC 33.5 (33.0-35.0) g/dL Plt Count 147 L (150-450) 10^3/uL Neut % (Auto) 74.2 (42.2-75.2) % Lymph % (Auto) 12.5 L (20.5-50.1) % [place] % (Auto) 11.8 H (2-8) % Eos % (Auto) 1.4 (1.0-3.0) % Baso % (Auto) 0.1 (0.0-1.0) % Sodium 138 (135-145) mmol/L Potassium 3.7 (3.6-5.0) mmol/L Chloride 107 (101-111) mmol/L Carbon Dioxide 25.0 (21.0-31.0) mmol/L Anion Gap 9.7 BUN 13 (7-18) mg/dL Creatinine 1.1 (0.6-1.3) mg/dL Est Cr Clr Drug Dosing 74.16 mL/min Estimated GFR (MDRD) > 60 Glucose 105 (74-105) mg/dL POC Glucose (70-105) mg/dl Calcium 7.5 L (8.4-10.2) mg/dl Urine Color Yellow (YELLOW) Urine Appearance Slightly cloudy (CLEAR) Urine pH 6.0 (5.0-9.0) Ur Specific [place] 1.020 (1.005-1.030) Urine Protein >=300 H (NEGATIVE) Urine Glucose (UA) 500 H (NEGATIVE) Urine Ketones Negative (NEGATIVE) Urine Occult Blood Moderate H (NEGATIVE) Urine Nitrite Negative (NEGATIVE) Urine Bilirubin Negative (NEGATIVE) Urine Urobilinogen 0.2 (0.2-1.0) mg/dL Ur Leukocyte Esterase Negative (NEGATIVE) Urine RBC 5-10 H /HPF Urine WBC Not seen (0-5/HPF) /HPF Ur Epithelial Cells Rare /HPF Urine Mucus Rare /LPF 10/15/17 Range/Units 07:48 WBC (5.0-10.0) 10^3/uL RBC (4.6-6.2) 10^6/uL Hgb (14.0-18.0) g/dL Hct (40.0-54.0) % MCV (80-100) fL MCH (27.0-34.0) pg MCHC (33.0-35.0) g/dL Plt Count (150-450) 10^3/uL Neut % (Auto) (42.2-75.2) % Lymph % (Auto) (20.5-50.1) % [place] % (Auto) (2-8) % Eos % (Auto) (1.0-3.0) % Baso % (Auto) (0.0-1.0) % Sodium (135-145) mmol/L Potassium (3.6-5.0) mmol/L Chloride (101-111) mmol/L Carbon Dioxide (21.0-31.0) mmol/L Anion Gap BUN (7-18) mg/dL Creatinine (0.6-1.3) mg/dL Est Cr Clr Drug Dosing mL/min Estimated GFR (MDRD) Glucose (74-105) mg/dL POC Glucose 125 H (70-105) mg/dl Calcium (8.4-10.2) mg/dl Urine Color (YELLOW) Urine Appearance (CLEAR) Urine pH (5.0-9.0) Ur Specific [place] (1.005-1.030) Urine Protein (NEGATIVE) Urine Glucose (UA) (NEGATIVE) Urine Ketones (NEGATIVE) Urine Occult Blood (NEGATIVE) Urine Nitrite (NEGATIVE) Urine Bilirubin (NEGATIVE) Urine Urobilinogen (0.2-1.0) mg/dL Ur Leukocyte Esterase (NEGATIVE) Urine RBC /HPF Urine WBC (0-5/HPF) /HPF Ur Epithelial Cells /HPF Urine Mucus /LPF Med Orders - Current: Current Medications Acetaminophen (Tylenol) 650 mg PO Q4H PRN PRN Reason: Fever Last Admin: 10/15/17 08:02 Dose: 650 mg Albuterol/Ipratropium (Duoneb 3.0-0.5 Mg/3 Ml) 3 ml NEB Q4H PRN PRN Reason: shortness of breath/wheezing Aspirin (Halfprin) 81 mg PO BEDTIME [facility] Last Admin: 10/14/17 21:27 Dose: 81 mg Atorvastatin Calcium (Lipitor) 20 mg PO DAILY [facility] Last Admin: 10/15/17 08:28 Dose: 20 mg Azithromycin (Zithromax) 500 mg PO DAILY [facility] Stop: 10/19/17 09:01 Last Admin: 10/15/17 08:27 Dose: 500 mg Ceftriaxone Sodium (Rocephin) 2 gm IVPUSH Q24H [facility] Stop: 10/19/17 19:01 Clopidogrel Bisulfate (Plavix) 75 mg PO DAILY [facility] Last Admin: 10/15/17 08:27 Dose: 75 mg Docusate Sodium (Colace) 100 mg PO BID PRN PRN Reason: Constipation Enoxaparin Sodium (Lovenox) 40 mg SUBCUT DAILY [facility] Last Admin: 10/15/17 08:29 Dose: 40 mg Gabapentin (Neurontin) 600 mg PO BID [facility] Last Admin: 10/15/17 08:28 Dose: 600 mg Sodium Chloride (Normal Saline) 1,000 mls @ 125 mls/hr IV ASDIRECTED [facility] Last Admin: 10/15/17 05:06 Dose: 125 mls/hr Ibuprofen (Motrin) 400 mg PO Q6H PRN PRN Reason: Pain (mild 1-3) Last Admin: 10/14/17 22:26 Dose: 400 mg Insulin Aspart (Novolog) 0 unit SUBCUT TIDMEALS [facility] PRN Reason: Protocol Last Admin: 10/15/17 08:06 Dose: Not Given Isosorbide Mononitrate (Imdur) 60 mg PO BEDTIME [facility] Last Admin: 10/14/17 21:27 Dose: 60 mg Lisinopril (Prinivil) 5 mg PO DAILY [facility] Last Admin: 10/15/17 08:27 Dose: 5 mg Metoprolol Succinate (Toprol Xl) 25 mg PO DAILY [facility] Last Admin: 10/15/17 08:28 Dose: 25 mg Multivitamins (Thera) 1 each PO DAILY [facility] Last Admin: 10/15/17 08:26 Dose: 1 each Non-Formulary Medication ([place]-3 Fatty Acids [Fish Oil]) 2 cap PO BID [facility] Ondansetron HCl (Zofran) 4 mg IVPUSH Q4H PRN PRN Reason: Nausea/Vomiting Oxycodone HCl (Oxycodone) 5 mg PO Q4H PRN PRN Reason: Pain (moderate 4-6) Last Admin: 10/15/17 08:01 Dose: 5 mg Sodium Chloride (Saline Flush) 10 ml FLUSH ASDIRECTED PRN PRN Reason: Keep Vein Open Last Admin: 10/14/17 18:07 Dose: 10 ml Discontinued Medications Acetaminophen (Tylenol Extra Strength) 1,000 mg PO ONETIME ONE Stop: 10/14/17 17:52 Last Admin: 10/14/17 17:59 Dose: 1,000 mg Albuterol/Ipratropium (Duoneb 3.0-0.5 Mg/3 Ml) 3 ml NEB ONETIME ONE Stop: 10/14/17 18:01 Last Admin: 10/14/17 18:12 Dose: 3 ml Ceftriaxone Sodium (Rocephin) 1 gm IVPUSH ONETIME ONE Stop: 10/14/17 19:06 Last Admin: 10/14/17 19:15 Dose: 1 gm Sodium Chloride (Normal Saline) 1,000 mls @ 999 mls/hr IV .BOLUS ONE Stop: 10/14/17 19:00 Last Admin: 10/14/17 18:11 Dose: 999 mls/hr Azithromycin 500 mg/ Sodium (Chloride) 250 mls @ 250 mls/hr IV ONETIME ONE Stop: 10/14/17 20:04 Last Admin: 10/14/17 19:25 Dose: 250 mls/hr Ceftriaxone Sodium 2,000 mg/ (Sodium Chloride) 50 mls @ 100 mls/hr IV Q24H [facility] Stop: 10/19/17 09:29 Ibuprofen (Motrin) 800 mg PO ONETIME ONE Stop: 10/14/17 19:07 Last Admin: 10/14/17 19:14 Dose: 800 mg - Exam General: Alert, Oriented HEENT: Pupils Equal, Pupils Reactive Lungs: Crackles, Other (left lower chest crackles) Cardiovascular: Regular Rate, Regular Rhythm GI/Abdominal Exam: Normal Bowel Sounds, Soft, Non-Tender, No Mass - Problem List & Annotations (1) Pneumonia SNOMED Code(s): 589724643 Code(s): J18.9 - PNEUMONIA, UNSPECIFIED ORGANISM Status: Acute Current Visit: Yes Qualifiers: Pneumonia type: due to unspecified organism Laterality: unspecified laterality Lung location: unspecified part of lung Qualified Code(s): J18.9 - Pneumonia, unspecified organism (2) Diabetes SNOMED Code(s): 15441478 Code(s): E11.9 - TYPE 2 DIABETES MELLITUS WITHOUT COMPLICATIONS Status: Acute Current Visit: No Qualifiers: Diabetes mellitus type: type 2 Diabetes mellitus complication status: without complication Diabetes mellitus joint terminal attack controller insulin use: unspecified detention insulin use status Qualified Code(s): E11.9 - Type 2 diabetes mellitus without complications - Problem List Review Problem List Initiated/Reviewed/Updated: Yes - My Orders Last 24 Hours: My Active Orders 10/14/17 20:37 Accu Check [Blood Glucose Check, Bedside] [RC] TIDMEALS 10/15/17 08:00 Insulin Aspart [NovoLOG] See Protocol SUBCUT TIDMEALS 10/15/17 09:00 Azithromycin [Zithromax] 500 mg PO DAILY 10/15/17 19:00 cefTRIAXone [Rocephin] 2 gm IVPUSH Q24H - Plan Plan:: 61 yo M with PMH of DM, CAD p/w cough, SOB. # Left lower lobe pneumonia IV ceftriaxone + azithromycin Sputum culture, blood culture # DM 2 accuchecks, insulin sliding scale hold metformin, saxigliptin carb controlled diet #Hx of CAD continue plavix, aspirin statin stable # DVT ppx SC lovenox
[2017-10-15] MEDS: OMEGA PO SCH ×2 (17:37→20:16)
[2017-10-15] MEDS ORDERED: cefTRIAXone 2 GM Vial IVPUSH SCH (19:00)
[2017-10-15] MEDS: Ibuprofen 400 MG Tab PO PRN (19:47)
[2017-10-15] MEDS: Aspirin 81 MG Tab.EC PO SCH (21:07)
[2017-10-15] MEDS: Isosorbide Mononitrate 60 MG Tab.ER PO SCH (21:09)
[2017-10-16] MEDS: Sodium Chloride 0.9% 1,000 ML IV SCH (05:09)
[2017-10-16 07:07] LABS: CHLORIDE,CL 109 mmol/L (101-111); SODIUM,NA 138 mmol/L (135-145)
[2017-10-16] MEDS: Gabapentin 300 MG Cap PO SCH (09:04)
[2017-10-16] MEDS: Azithromycin 250 MG Tab PO SCH (09:04)
[2017-10-16] MEDS: Multivitamins,Therapeutic Tab PO SCH (09:05)
[2017-10-16] MEDS: Clopidogrel 75 MG Tab PO SCH (09:05)
[2017-10-16] MEDS: Metoprolol Succinate 25 MG Tab.ER PO SCH (09:05)
[2017-10-16] MEDS: Lisinopril 5 MG Tab PO SCH (09:05)
[2017-10-16] MEDS: atorvaSTATin 20 MG Tab PO SCH (09:06)
[2017-10-16] MEDS: Enoxaparin 40 MG/0.4 ML Syringe SUBCUT SCH (09:06)
[2017-10-16] MEDS: Insulin Aspart 100 Units/ML 3 ML Pen SUBCUT SCH ×2 (09:08→11:24)
[2017-10-16] MEDS: oxyCODONE 5 MG Tab PO PRN (10:54)
[2017-10-16] MEDS: Acetaminophen 325 MG Tab PO PRN (10:55)
[2017-10-16 11:00] VITALS: BP 138/88
--- NOTE | 2017-10-16 11:16 | PCM.DCSUM1 ---
Discharge Summary - Hospital Course Free Text/Narrative:: 61 yo M with PMH of DM, CAD p/w cough, SOB. # Left lower lobe pneumonia seen on CXR treated with IV ceftriaxone + azithromycin Sputum culture, blood culture negative for now # DM 2 resume metformin, saxigliptin carb controlled diet #Hx of CAD continue plavix, aspirin statin - Discharge Data Discharge Date: 10/16/17 Discharge Disposition: Home, Self-Care 01 Condition: Good - Patient Instructions Diet: Heart Healthy Diet, Diabetic Diet Activity: As Tolerated - Discharge Plan Prescriptions/Med Rec: Levofloxacin [Levaquin] 500 mg PO DAILY #7 tab Home Medications: Home Meds Aspirin [Low Dose Aspirin EC] 81 mg PO BEDTIME 07/28/14 [History] Lisinopril 5 mg PO DAILY 07/28/14 [History] Clopidogrel Bisulfate [Clopidogrel] 1 tab PO DAILY 03/19/16 [History] atorvaSTATin Calcium [Atorvastatin Calcium] 20 mg PO DAILY 03/19/16 [History] [place]-3 Fatty Acids [Fish Oil] 2 cap PO BID 05/04/16 [History] Gabapentin [Neurontin] 600 mg PO BID 08/21/16 [History] Isosorbide Mononitrate [Imdur] 60 mg PO BEDTIME 09/24/16 [History] Acetaminophen 325 mg PO Q4HR PRN 02/21/17 [History] Metoprolol Succinate [Toprol XL] 25 mg PO DAILY 02/21/17 [History] metFORMIN [Glucophage] 500 mg PO BIDMEALS 04/04/17 [History] Multivitamin [Multivitamins] 1 each PO DAILY 07/09/17 [History] Saxagliptin HCl [Onglyza] 5 mg PO DAILY 07/09/17 [History] Levofloxacin [Levaquin] 500 mg PO DAILY #7 tab 10/16/17 [Rx] Patient Handouts: Levofloxacin tablets, Community-Acquired Pneumonia, Adult Referrals: PCP,Unobtain [Primary Care Provider] - (in 2-3 days) - Discharge Summary/Plan Comment DC Time >30 min.: No - General Info Date of Service: 10/16/17 Admission Dx/Problem (Free Text: Admission Diagnosis/Problem Admission Diagnosis/Problem Left lower lobe pneumonia - Review of Systems General: Denies: Fever, Weakness Pulmonary: Denies: Shortness of Breath Cardiovascular: Denies: Chest Pain Neurological: Denies: Confusion - Patient Data Vitals - Most Recent: Last Vital Signs Temp 37.0 C 10/16/17 10:59 Pulse 70 10/16/17 10:59 Resp 20 10/16/17 10:59 BP 138/88 10/16/17 10:59 Pulse Ox 98 10/16/17 10:59 Weight - Most Recent: 93.259 kg I&O - Last 24 hours: Intake & Output 10/15/17 10/16/17 10/16/17 22:59 06:59 14:59 Intake Total 2539 1922 1640 Output Total 980 2520 400 Balance 1559 -598 1240 Lab Results - Last 24 hrs: Laboratory Results - last 24 hr 10/15/17 10/15/17 10/16/17 Range/Units 12:07 17:02 06:29 WBC 5.0 (5.0-10.0) 10^3/uL RBC 3.64 L (4.6-6.2) 10^6/uL Hgb 10.8 L (14.0-18.0) g/dL Hct 32.3 L (40.0-54.0) % MCV 88.7 (80-100) fL MCH 29.7 (27.0-34.0) pg MCHC 33.4 (33.0-35.0) g/dL Plt Count 152 (150-450) 10^3/uL Neut % (Auto) 55.9 (42.2-75.2) % Lymph % (Auto) 27.9 (20.5-50.1) % [place] % (Auto) 9.3 H (2-8) % Eos % (Auto) 6.7 H (1.0-3.0) % Baso % (Auto) 0.2 (0.0-1.0) % Sodium (135-145) mmol/L Potassium (3.6-5.0) mmol/L Chloride (101-111) mmol/L Carbon Dioxide (21.0-31.0) mmol/L Anion Gap BUN (7-18) mg/dL Creatinine (0.6-1.3) mg/dL Est Cr Clr Drug Dosing mL/min Estimated GFR (MDRD) Glucose (74-105) mg/dL POC Glucose 117 H 110 H (70-105) mg/dl Calcium (8.4-10.2) mg/dl 10/16/17 10/16/17 Range/Units 06:29 07:48 WBC (5.0-10.0) 10^3/uL RBC (4.6-6.2) 10^6/uL Hgb (14.0-18.0) g/dL Hct (40.0-54.0) % MCV (80-100) fL MCH (27.0-34.0) pg MCHC (33.0-35.0) g/dL Plt Count (150-450) 10^3/uL Neut % (Auto) (42.2-75.2) % Lymph % (Auto) (20.5-50.1) % [place] % (Auto) (2-8) % Eos % (Auto) (1.0-3.0) % Baso % (Auto) (0.0-1.0) % Sodium 138 (135-145) mmol/L Potassium 3.9 (3.6-5.0) mmol/L Chloride 109 (101-111) mmol/L Carbon Dioxide 23.0 (21.0-31.0) mmol/L Anion Gap 9.9 BUN 9 (7-18) mg/dL Creatinine 1.0 (0.6-1.3) mg/dL Est Cr Clr Drug Dosing 81.58 mL/min Estimated GFR (MDRD) > 60 Glucose 108 H (74-105) mg/dL POC Glucose 104 (70-105) mg/dl Calcium 7.8 L (8.4-10.2) mg/dl Med Orders - Current: Current Medications Acetaminophen (Tylenol) 650 mg PO Q4H PRN PRN Reason: Fever Last Admin: 10/16/17 10:55 Dose: 650 mg Albuterol/Ipratropium (Duoneb 3.0-0.5 Mg/3 Ml) 3 ml NEB Q4H PRN PRN Reason: shortness of breath/wheezing Aspirin (Halfprin) 81 mg PO BEDTIME [facility] Last Admin: 10/15/17 21:07 Dose: 81 mg Atorvastatin Calcium (Lipitor) 20 mg PO DAILY [facility] Last Admin: 10/16/17 09:06 Dose: 20 mg Azithromycin (Zithromax) 500 mg PO DAILY [facility] Stop: 03/11/18 09:01 Last Admin: 10/16/17 09:04 Dose: 500 mg Ceftriaxone Sodium (Rocephin) 2 gm IVPUSH Q24H [facility] Stop: 10/19/17 19:01 Last Admin: 10/15/17 18:18 Dose: 2 gm Clopidogrel Bisulfate (Plavix) 75 mg PO DAILY [facility] Last Admin: 10/16/17 09:05 Dose: 75 mg Docusate Sodium (Colace) 100 mg PO BID PRN PRN Reason: Constipation Enoxaparin Sodium (Lovenox) 40 mg SUBCUT DAILY [facility] Last Admin: 10/16/17 09:06 Dose: 40 mg Gabapentin (Neurontin) 600 mg PO BID [facility] Last Admin: 10/16/17 09:04 Dose: 600 mg Sodium Chloride (Normal Saline) 1,000 mls @ 125 mls/hr IV ASDIRECTED [facility] Last Infusion: 10/16/17 10:57 Dose: 125 mls/hr Ibuprofen (Motrin) 400 mg PO Q6H PRN PRN Reason: Pain (mild 1-3) Last Admin: 10/15/17 19:47 Dose: 400 mg Insulin Aspart (Novolog) 0 unit SUBCUT TIDMEALS [facility] PRN Reason: Protocol Last Admin: 10/16/17 09:08 Dose: Not Given Isosorbide Mononitrate (Imdur) 60 mg PO BEDTIME [facility] Last Admin: 10/15/17 21:09 Dose: 60 mg Lisinopril (Prinivil) 5 mg PO DAILY [facility] Last Admin: 10/16/17 09:05 Dose: 5 mg Metoprolol Succinate (Toprol Xl) 25 mg PO DAILY [facility] Last Admin: 10/16/17 09:05 Dose: 25 mg Multivitamins (Thera) 1 each PO DAILY [facility] Last Admin: 10/16/17 09:05 Dose: 1 each Ondansetron HCl (Zofran) 4 mg IVPUSH Q4H PRN PRN Reason: Nausea/Vomiting Oxycodone HCl (Oxycodone) 5 mg PO Q4H PRN PRN Reason: Pain (moderate 4-6) Last Admin: 10/16/17 10:54 Dose: 5 mg Sodium Chloride (Saline Flush) 10 ml FLUSH ASDIRECTED PRN PRN Reason: Keep Vein Open Last Admin: 10/14/17 18:07 Dose: 10 ml Discontinued Medications Acetaminophen (Tylenol Extra Strength) 1,000 mg PO ONETIME ONE Stop: 10/14/17 17:52 Last Admin: 10/14/17 17:59 Dose: 1,000 mg Albuterol/Ipratropium (Duoneb 3.0-0.5 Mg/3 Ml) 3 ml NEB ONETIME ONE Stop: 10/14/17 18:01 Last Admin: 10/14/17 18:12 Dose: 3 ml Ceftriaxone Sodium (Rocephin) 1 gm IVPUSH ONETIME ONE Stop: 10/14/17 19:06 Last Admin: 10/14/17 19:15 Dose: 1 gm Sodium Chloride (Normal Saline) 1,000 mls @ 999 mls/hr IV .BOLUS ONE Stop: 10/14/17 19:00 Last Admin: 10/14/17 18:11 Dose: 999 mls/hr Azithromycin 500 mg/ Sodium (Chloride) 250 mls @ 250 mls/hr IV ONETIME ONE Stop: 10/14/17 20:04 Last Admin: 10/14/17 19:25 Dose: 250 mls/hr Ceftriaxone Sodium 2,000 mg/ (Sodium Chloride) 50 mls @ 100 mls/hr IV Q24H [facility] Stop: 10/19/17 09:29 Ibuprofen (Motrin) 800 mg PO ONETIME ONE Stop: 10/14/17 19:07 Last Admin: 10/14/17 19:14 Dose: 800 mg Non-Formulary Medication ([place]-3 Fatty Acids [Fish Oil]) 2 cap PO BID [facility] Last Admin: 10/15/17 20:16 Dose: Not Given - Exam General: Reports: Alert, Oriented Neck: Reports: Supple Lungs: Reports: Normal Respiratory Effort, Decreased Breath Sounds Cardiovascular: Reports: Regular Rate, Regular Rhythm GI/Abdominal Exam: Normal Bowel Sounds, Soft, Non-Tender Extremities: No Pedal Edema Skin: Reports: Warm, Dry Neurological: Reports: No New Focal Deficit Psy/Mental Status: Reports: Alert, Normal Affect, Normal Mood *Q Meaningful Use (DIS) - VTE *Q VTE Criteria *Q: - Stroke *Q Stroke Criteria *Q: - AMI *Q AMI Criteria *Q:
== END 2017-10-16 12:00 | disposition home or self-care (01) ==
LOC: DL.ED 17:25 → DL.MS 19:32 → INTOOBSV 19:32 → UNDOADMOB 19:32 → DL.MS 20:29
PROVIDERS: ADMIT Hospitalist; ATTEND Hospitalist
DX: J18.9 Pneumonia, unspecified organism (principal); E11.9 Type 2 diabetes mellitus without complications; I25.10 Atherosclerotic heart disease of native coronary artery without angina pectoris; Z79.82 Long term (current) use of aspirin; Z79.84 Long term (current) use of oral hypoglycemic drugs; Z79.899 Other long term (current) drug therapy; Z91.030 Bee allergy status; Z90.49 Acquired absence of other specified parts of digestive tract; Z95.5 Presence of coronary angioplasty implant and graft; Z87.891 Personal history of nicotine dependence
CPT/HCPCS: 36415; 71046; 80048; 80053; 81001; 82962; 83605; 83880; 85025; 87040; 87070; 87077; 87081; 87205; 87430; 87804; 96361; 96365; 96372; 96375; 99285; A9270; G0378; J0456; J0696; J1650; J7030; J7050

== ENCOUNTER 2017-10-30 08:39 | Emergency (ER) | payer OTHER ==
--- NOTE | 2017-10-30 08:48 | EDM.PDOC ---
ED HPI GENERAL MEDICAL PROBLEM - General Stated Complaint: [id number] NOSE BLEED Time Seen by Provider: 10/30/17 08:45 Source of Information: Reports: Patient, Old Records, RN, RN Notes Reviewed History Limitations: Reports: No Limitations - History of Present Illness INITIAL COMMENTS - FREE TEXT/NARRATIVE: Leif is a 61yo M who presents today due to a nosebleed that started around 0730 this am. He reports that he was getting ready for the day and his noticed that his nose started bleeding. Reports that he has noticed clots coming out of his nose. Reports bright red bleeding from left nare. Reports that he does have a history of nose bleeds. He is taking plavix and aspirin daily due to his cardiac stents. Onset: Today Onset Date: 10/30/17 Onset Time: 07:30 Location: Reports: Face Improves with: Reports: Other (Pressure) Worsens with: Reports: None Associated Symptoms: Reports: No Other Symptoms - Related Data Allergies Allergy/AdvReac Type Severity Reaction Status Date / Time venom-honey bee Allergy Difficulty Verified 10/30/17 08:53 [bee venom (honey bee)] Breathing Home Meds: Home Meds Aspirin [Low Dose Aspirin EC] 81 mg PO BEDTIME 07/28/14 [History] Lisinopril 5 mg PO DAILY 07/28/14 [History] Clopidogrel Bisulfate [Clopidogrel] 1 tab PO DAILY 03/19/16 [History] atorvaSTATin Calcium [Atorvastatin Calcium] 20 mg PO DAILY 03/19/16 [History] [place]-3 Fatty Acids [Fish Oil] 2 cap PO BID 05/04/16 [History] Gabapentin [Neurontin] 600 mg PO BID 08/21/16 [History] Isosorbide Mononitrate [Imdur] 60 mg PO BEDTIME 09/24/16 [History] Acetaminophen 325 mg PO Q4HR PRN 02/21/17 [History] Metoprolol Succinate [Toprol XL] 25 mg PO DAILY 02/21/17 [History] metFORMIN [Glucophage] 500 mg PO BIDMEALS 04/04/17 [History] Multivitamin [Multivitamins] 1 each PO DAILY 07/09/17 [History] Saxagliptin HCl [Onglyza] 5 mg PO DAILY 07/09/17 [History] Levofloxacin [Levaquin] 500 mg PO DAILY #7 tab 10/16/17 [Rx] Past Medical History HEENT History: Reports: Other (See Below) Other HEENT History: wears glasses Cardiovascular History: Reports: High Cholesterol, Hypertension, Stents Respiratory History: Reports: Pneumonia, Recurrent Gastrointestinal History: Reports: Other (See Below) Other Gastrointestinal History: [place] HERN[place] Genitourinary History: Reports: None Musculoskeletal History: Reports: Arthritis Neurological History: Reports: Neuropathy, Peripheral Psychiatric History: Reports: None Endocrine/Metabolic History: Reports: Diabetes, Type II Hematologic History: Reports: None Immunologic History: Reports: None Oncologic (Cancer) History: Reports: None Dermatologic History: Reports: None - Infectious Disease History Infectious Disease History: Reports: None - Past Surgical History Head Surgeries/Procedures: Reports: None Cardiovascular Surgical History: Reports: Coronary Artery Stent GI Surgical History: Reports: Appendectomy, Cholecystectomy, Hernia Repair/Other Male Surgical History: Reports: None Social & Family History - Family History Family Medical History: Noncontributory - Tobacco Use Smoking Status *Q: Former Smoker Years of Tobacco use: 7 Packs/Tins Daily: 1 Used Tobacco, but Quit: Yes Month/Year Tobacco Last Used: Jun, 2015 Second Hand Smoke Exposure: No - Caffeine Use Caffeine Use: Reports: Coffee, Tea - Alcohol Use Days Per Week of Alcohol Use: 0 - Recreational Drug Use Recreational Drug Use: No - Living Situation & Occupation Living situation: Reports: with Family ED ROS ENT - Review of Systems Review Of Systems: ROS reveals no pertinent complaints other than HPI. ED EXAM, ENT - Physical Exam Exam: See Below Exam Limited By: No Limitations General Appearance: Alert, WD/WN, No Apparent Distress Eye Exam: Bilateral Eye: PERRL Ears: Normal External Exam, Normal Canal, Hearing Grossly Normal, Normal TMs Nose: Other (Bright red bleeding present to left nare. Patient is passing large clots from nose. ) Mouth/Throat: Normal Inspection, Normal Gums, Normal Lips, Normal Oropharynx, Normal Teeth Head: Atraumatic, Normocephalic Neck: Normal Inspection, Supple, Non-Tender, Full Range of Motion Respiratory/Chest: No Respiratory Distress, Lungs Clear, Normal Breath Sounds, No Accessory Muscle Use, Chest Non-Tender Cardiovascular: Normal Peripheral Pulses, Regular Rate, Rhythm, No Edema, No Gallop, No JVD, No Murmur, No Rub GI/Abdominal: Normal Bowel Sounds, Soft, Non-Tender, No Organomegaly, No Distention, No Abnormal Bruit, No Mass (Male) Exam: Deferred Rectal (Males) Exam: Deferred Back: Normal Inspection, Full Range of Motion Extremities: Normal Inspection, Normal Range of Motion, Non-Tender, No Pedal Edema, Normal Capillary Refill Neurological: Alert, Oriented, CN II-XII Intact, Normal Cognition, Normal Gait, Normal Reflexes, No Motor/Sensory Deficits Psychiatric: Normal Affect, Normal Mood Skin: Warm, Dry, Intact, Normal Color, No Rash Lymphatic: No Adenopathy ED ENT PROCEDURES - Epistaxis Procedure Recent anticoagulants/antiplatlets: Yes (Patient is currently taking plavix and asa) Uncontrolled HTN: No Recent septal/nasal surgery: No Site of bleeding: Left Nare Clearing of clots: Patient Blew Nose Topical Meds: Other (Afrin nasal spray) Ice pack to area: No Anterior Packing: Nasal Tampon Course - Vital Signs Last Recorded V/S: Last Vital Signs Temp 37.2 C 10/30/17 08:51 Pulse 85 10/30/17 08:51 Resp 16 10/30/17 08:51 BP 156/96 H 10/30/17 08:51 Pulse Ox 99 10/30/17 08:51 - Orders/Labs/Meds Meds: Medications Discontinued Medications Generic Name Dose Route Start Last Admin Trade Name Freq PRN Reason Stop Dose Admin Oxymetazoline HCl 1 ml 10/30/17 08:51 10/30/17 08:55 Afrin Original 0.05% Nasal [place] 10/30/17 08:52 1 ml ONETIME ONE Administration Departure - Departure Time of Disposition: 09:19 Disposition: Home, Self-Care 01 Condition: Good Clinical Impression: Epistaxis - Discharge Information Instructions: Nosebleed, Adult Referrals: Jimbo Callahan MD [Primary Care Provider] - Forms: ED Department Discharge Care Plan Goals: Leave packing in place until follow-up. Follow-up with your primary care facility to have the packing removed tomorrow afternoon. Return to the clinic or ER if nosebleed reoccurs. Patient verbalizes understanding.
[2017-10-30] MEDS ORDERED: Oxymetazoline 0.05% Nasal Spray 15 ML Bottle NAS ONE (08:51)
[2017-10-30 08:53] VITALS: BP 156/96
== END 2017-10-30 09:24 | disposition home or self-care (01) ==
LOC: DL.ED 08:39
DX: R04.0 Epistaxis (principal); E11.40 Type 2 diabetes mellitus with diabetic neuropathy, unspecified; I10 Essential (primary) hypertension; E78.00 Pure hypercholesterolemia, unspecified; Z79.84 Long term (current) use of oral hypoglycemic drugs; Z79.899 Other long term (current) drug therapy; Z91.030 Bee allergy status
CPT/HCPCS: 30901; 99283; A9270

== ENCOUNTER 2019-01-14 15:29 | Emergency (ER) | payer OTHER ==
[2019-01-14 15:55] VITALS: BP 134/75
[2019-01-14] MEDS ORDERED: Sodium Chloride 0.9% 10 ML Syringe FLUSH PRN (16:07)
--- NOTE | 2019-01-14 16:16 | EDM.PDOC ---
ED HPI GENERAL MEDICAL PROBLEM - General Chief Complaint: General Stated Complaint: FEELING LIGHT HEADED AND DIZZY Time Seen by Provider: 01/14/19 16:07 Source of Information: Reports: Patient History Limitations: Reports: No Limitations - History of Present Illness INITIAL COMMENTS - FREE TEXT/NARRATIVE: she comes emergency Department today with complaints of generalized numbness and tingling as well as headache and visual disturbances. Patient relates when he woke up this morning he had a headache. He was also seeing spots in his vision throughout the day. The spots have resolved on their own. If he has been walking at home he feels very weak in his lower extremities and he is constantly leaning to the left. He has not fallen and hit his head. He has felt no palpitations. He also complains of generalized lightheadedness. No syncope. No fever no chills. No shortness of breath difficulty breathing or cough. No chest pain other than some epigastric pain that is constant and does not get worse with deep breath cough or movement. Gait pressure sensation on his chest. He did take aspirin prior to arrival in the emergency department. He relates it is difficult for him to walk as he has altered sensation in his lower extremities since he woke up. No recent falls trauma or other accidents. Epigastric Pain Score (Numeric/FACES): 5 - Related Data Allergies Allergy/AdvReac Type Severity Reaction Status Date / Time venom-honey bee Allergy Difficulty Verified 01/14/19 15:54 [bee venom (honey bee)] Breathing Home Meds: Home Meds Aspirin [Low Dose Aspirin EC] 162 mg PO BEDTIME 07/28/14 [History] Clopidogrel Bisulfate [Clopidogrel] 75 mg PO DAILY 03/19/16 [History] atorvaSTATin Calcium [Atorvastatin Calcium] 20 mg PO DAILY 03/19/16 [History] Dorena-3 Fatty Acids [Fish Oil] 1,000 mg PO BID 05/04/16 [History] Gabapentin [Neurontin] 600 mg PO BID 08/21/16 [History] Isosorbide Mononitrate [Imdur] 60 mg PO BEDTIME 09/24/16 [History] Acetaminophen 325 mg PO Q4HR PRN 02/21/17 [History] Metoprolol Succinate [Toprol XL] 25 mg PO DAILY 02/21/17 [History] metFORMIN [Glucophage] 500 mg PO BIDMEALS 04/04/17 [History] Multivitamin [Multivitamins] 1 each PO DAILY 07/09/17 [History] Saxagliptin HCl [Onglyza] 5 mg PO DAILY 07/09/17 [History] Lisinopril 10 mg PO DAILY 07/02/18 [History] Past Medical History HEENT History: Reports: Impaired Vision, Other (See Below) Other HEENT History: wears glasses Cardiovascular History: Reports: High Cholesterol, Hypertension, Stents Respiratory History: Reports: Pneumonia, Recurrent Gastrointestinal History: Reports: Other (See Below) Other Gastrointestinal History: [place] HERNIA Genitourinary History: Reports: Renal Calculus Musculoskeletal History: Reports: Arthritis, Fracture Neurological History: Reports: Neuropathy, Diabetic, Neuropathy, Peripheral Psychiatric History: Reports: None Endocrine/Metabolic History: Reports: Diabetes, Type II, Obesity/BMI 30+ Hematologic History: Reports: None Immunologic History: Reports: None Oncologic (Cancer) History: Reports: None Dermatologic History: Reports: None - Infectious Disease History Infectious Disease History: Reports: None - Past Surgical History Head Surgeries/Procedures: Reports: None HEENT Surgical History: Reports: None Cardiovascular Surgical History: Reports: Coronary Artery Stent Respiratory Surgical History: Reports: None GI Surgical History: Reports: Appendectomy, Cholecystectomy, Hernia Repair/Other Male Surgical History: Reports: None Musculoskeletal Surgical History: Reports: Other (See Below) Other Musculoskeletal Surgeries/Procedures:: ankle fracture repair Social & Family History - Family History Family Medical History: Noncontributory - Tobacco Use Smoking Status *Q: Never Smoker Second Hand Smoke Exposure: No - Caffeine Use Caffeine Use: Reports: Coffee, Soda - Recreational Drug Use Recreational Drug Use: No - Living Situation & Occupation Living situation: Reports: with Family ED ROS GENERAL - Review of Systems Review Of Systems: ROS reveals no pertinent complaints other than HPI. ED EXAM, GENERAL - Physical Exam Exam: See Below Exam Limited By: No Limitations General Appearance: Alert, WD/WN, No Apparent Distress Eye Exam: Bilateral Eye: EOMI, Normal Inspection, PERRL Ears: Normal External Exam, Normal Canal, Normal TMs Nose: Normal Inspection, Normal Mucosa Throat/Mouth: Normal Inspection, Normal Lips, Normal Teeth, Normal Oropharynx Head: Atraumatic, Normocephalic Neck: Normal Inspection Respiratory/Chest: No Respiratory Distress, Lungs Clear, No Accessory Muscle Use Cardiovascular: Normal Peripheral Pulses, Regular Rate, Rhythm Peripheral Pulses: 2+: Radial (L), Radial (R), Posterior Tibial (L), Posterior Tibial (R), Dorsalis Pedis (L), Dorsalis Pedis (R) GI/Abdominal: Normal Bowel Sounds, Soft, Non-Tender, No Organomegaly Back Exam: Normal Inspection, Full Range of Motion Extremities: Normal Inspection, Non-Tender, Normal Capillary Refill. No: Normal Range of Motion (somewhat ataxia and weakness to his lower extremities) Neurological: Alert, Oriented, CN II-XII Intact, Normal Cognition, Other (hand grasps are equal bilaterally. No pronator drift. He is unable to lift his left leg off the bed and hold it up at all. He is able to lift his right leg off the bed but falls back to the bed. He is unable to do the heel down the tib-fib and off but told with either one of his lower extremities and they're somewhat ataxic.). No: Normal Gait (somewhat leans the left as he is ambulating.) Skin Exam: Warm, Dry, Intact, Normal Color EKG INTERPRETATION EKG Date: 01/14/19 Time: 16:15 Rhythm: Other (1st degree AV block.) Rate (Beats/Min): 60 [place]: Normal P-Wave: Present QRS: Normal ST-T: Normal QT: Normal Comparison: No Change Course - Vital Signs Last Recorded V/S: Last Vital Signs Temp 36.1 C 01/14/19 15:50 Pulse 63 01/14/19 15:50 Resp 16 01/14/19 15:50 BP 134/75 01/14/19 15:50 Pulse Ox 99 01/14/19 15:50 Orthostatic Blood Pressure [ 140/69 Standing] Orthostatic Blood Pressure [ 126/68 Sitting] Orthostatic Blood Pressure [ 125/68 Supine] - Orders/Labs/Meds Orders: Active Orders 24 hr Category Date Time Status EKG 12 Lead [EKG Documentation Completion] [RC] URGENT Care 01/14/19 16:07 Active Orthostatic Vital Signs [RC] ASDIRECTED Care 01/14/19 16:21 Active Peripheral IV Care [RC] . DIRECTED Care 01/14/19 16:07 Active Chest 2V [CR] Urgent Exams 01/14/19 16:07 Taken Head wo Cont [CT] Stat Exams 01/14/19 16:15 Taken COMPREHENSIVE METABOLIC PN,CMP [CHEM] Stat Lab 01/14/19 16:12 Results TROPONIN I [CHEM] Stat Lab 01/14/19 16:12 Results UA RFX BERTRAND AND CULT IF INDIC [URIN] Stat Lab 01/14/19 16:40 Received Sodium Chloride 0.9% [Saline Flush] Med 01/14/19 16:07 Active 10 ml FLUSH ASDIRECTED PRN Peripheral IV Insertion Adult [OM.PC] Stat Oth 01/14/19 16:07 Ordered Medication Orders Sodium Chloride (Saline Flush) 10 ml FLUSH ASDIRECTED PRN PRN Reason: Keep Vein Open Last Admin: 01/14/19 17:17 Dose: 10 ml Labs: Laboratory Tests 01/14/19 01/14/19 Range/Units 16:12 16:12 WBC 6.5 (5.0-10.0) 10^3/uL RBC 4.07 L (4.6-6.2) 10^6/uL Hgb 12.0 L (14.0-18.0) g/dL Hct 36.1 L (40.0-54.0) % MCV 88.7 (80-100) fL MCH 29.5 (27.0-34.0) pg MCHC 33.2 (33.0-35.0) g/dL Plt Count 220 (150-450) 10^3/uL Neut % (Auto) 58.2 (42.2-75.2) % Lymph % (Auto) 27.0 (20.5-50.1) % [place] % (Auto) 9.7 H (2-8) % Eos % (Auto) 4.6 H (1.0-3.0) % Baso % (Auto) 0.5 (0.0-1.0) % Troponin I < 0.02 (0.00-0.02) ng/ml Meds: Medications Generic Name Dose Route Start Last Admin Trade Name Freq PRN Reason Stop Dose Admin Sodium Chloride 10 ml 01/14/19 16:07 01/14/19 17:17 Saline Flush FLUSH 10 ml ASDIRECTED PRN Administration Keep Vein Open - Radiology Interpretation Free Text/Narrative:: chest x-ray per radiology no acute findings CT head no acute findings per radiology. - Re-Assessments/Exams Free Text/Narrative Re-Assessment/Exam: 01/14/19 17:52 patient's evaluation is rather unremarkable to include troponin laboratory evaluation. His CT is normal. His chest x-ray is normal. He definitely has some lower extremity ataxia as well as some lower extremity weakness. He has no recent falls traumas injuries or chronic problems with lower extremity weakness or sensation for which he reports. Unsure of what causing the myriad and plethora amount of symptoms. I contacted hospitalist on-call at [facility]. History of present illness ER course related to him he accepted the patient in transfer this time. Departure - Departure Time of Disposition: 17:50 Disposition: DC/Tfer to [facility] 02 Clinical Impression: Lower extremity weakness Qualifiers: Laterality: bilateral Qualified Code(s): R29.898 - Other symptoms and signs involving the musculoskeletal system - Discharge Information Forms: ED Department Discharge - My Orders Last 24 Hours: My Active Orders 01/14/19 16:07 EKG 12 Lead [EKG Documentation Completion] [RC] URGENT Peripheral IV Care [RC] . DIRECTED Chest 2V [CR] Urgent Sodium Chloride 0.9% [Saline Flush] 10 ml FLUSH ASDIRECTED PRN Peripheral IV Insertion Adult [OM.PC] Stat 01/14/19 16:12 COMPREHENSIVE METABOLIC PN,CMP [CHEM] Stat TROPONIN I [CHEM] Stat 01/14/19 16:15 Head wo Cont [CT] Stat 01/14/19 16:21 Orthostatic Vital Signs [RC] ASDIRECTED 01/14/19 16:40 UA RFX BERTRAND AND CULT IF INDIC [URIN] Stat - Assessment/Plan Last 24 Hours: My Active Orders 01/14/19 16:07 EKG 12 Lead [EKG Documentation Completion] [RC] URGENT Peripheral IV Care [RC] . DIRECTED Chest 2V [CR] Urgent Sodium Chloride 0.9% [Saline Flush] 10 ml FLUSH ASDIRECTED PRN Peripheral IV Insertion Adult [OM.PC] Stat 01/14/19 16:12 COMPREHENSIVE METABOLIC PN,CMP [CHEM] Stat TROPONIN I [CHEM] Stat 01/14/19 16:15 Head wo Cont [CT] Stat 01/14/19 16:21 Orthostatic Vital Signs [RC] ASDIRECTED 01/14/19 16:40 UA RFX BERTRAND AND CULT IF INDIC [URIN] Stat Assessment:: Lower extremity weakness, L>R. Unknown cause. No recent falls or trauma. CP negative work up. Plan: Transfer to [facility].
[2019-01-14 16:38] LABS: ANION GAP 13.9; CHLORIDE,CL 102 mmol/L (101-111); SODIUM,NA 131 mmol/L (135-145)
[2019-01-14] MEDS ORDERED: Acetaminophen 500 MG Tab PO ONE (17:54)
== END 2019-01-14 18:58 ==
LOC: DL.ED 15:29
DX: R29.898 Other symptoms and signs involving the musculoskeletal system (principal); E78.00 Pure hypercholesterolemia, unspecified; I10 Essential (primary) hypertension; E11.42 Type 2 diabetes mellitus with diabetic polyneuropathy; E66.9 Obesity, unspecified; Z91.030 Bee allergy status; Z95.5 Presence of coronary angioplasty implant and graft; Z79.82 Long term (current) use of aspirin; Z79.899 Other long term (current) drug therapy
CPT/HCPCS: 36415; 70450; 71046; 80053; 81001; 84484; 85025; 93005; 99285; A9270

== ENCOUNTER 2022-08-31 14:36 | Emergency (ER) | payer BC, MEDICARE, MEDICAID ==
[2022-08-31] MEDS ORDERED: Acetaminophen/Codeine 300-30 MG Tab PO ONE (14:37)
[2022-08-31] MEDS ORDERED: Acetaminophen/oxyCODONE 325-5 MG Tab PO ONE (16:43)
[2022-08-31 16:57] VITALS: BP 125/80; PULSE 76
[2022-08-31] MEDS ORDERED: Acetaminophen/Codeine 300-30 MG Tab ONE (17:39)
== END 2022-08-31 17:55 | disposition home or self-care (01) ==
LOC: DL.ED 14:36
DX: M23.91 Unspecified internal derangement of right knee (principal); I25.10 Atherosclerotic heart disease of native coronary artery without angina pectoris; E78.00 Pure hypercholesterolemia, unspecified; E11.22 Type 2 diabetes mellitus with diabetic chronic kidney disease; I12.9 Hypertensive chronic kidney disease with stage 1 through stage 4 chronic kidney disease, or unspecified chronic kidney disease; N18.30 Chronic kidney disease, stage 3 unspecified; E11.42 Type 2 diabetes mellitus with diabetic polyneuropathy; E66.9 Obesity, unspecified; Z68.30 Body mass index [BMI] 30.0-30.9, adult; Z79.02 Long term (current) use of antithrombotics/antiplatelets; Z79.899 Other long term (current) drug therapy; Z91.030 Bee allergy status; W17.2XXA Fall into hole, initial encounter; W01.0XXA Fall on same level from slipping, tripping and stumbling without subsequent striking against object, initial encounter; Y93.01 Activity, walking, marching and hiking; Y92.009 Unspecified place in unspecified non-institutional (private) residence as the place of occurrence of the external cause
CPT/HCPCS: 73552; 73560; 73590; 99283; A9270

== ENCOUNTER 2022-10-03 11:08 | Observation (INO) | payer BC, MEDICARE, MEDICAID ==
[2022-10-03 13:04] LABS: ANION GAP 12.5 mEq/L (7-13)
[2022-10-03 13:09] LABS: PTT,PARTIAL THROMBOPLSTIN TIME 25.8 SEC (22.0-34.0)
[2022-10-03] MEDS ORDERED: Albuterol/Ipratropium 3.0-0.5 MG/3 ML Neb Soln NEB PRN (14:09)
[2022-10-03] MEDS ORDERED: Sodium Chloride 0.9% 10 ML Syringe FLUSH PRN (14:09)
[2022-10-03] MEDS ORDERED: Acetaminophen/HYDROcodone 325-5 MG Tab PO PRN (14:09)
[2022-10-03] MEDS ORDERED: Ketorolac 30 MG/ML SDV IVPUSH PRN (14:09)
[2022-10-03] MEDS ORDERED: Ondansetron 4 MG/2 ML SDV IVPUSH PRN (14:09)
[2022-10-03] MEDS ORDERED: Magnesium Hydroxide 400 MG/5 ML Susp 30 ML Cup PO PRN (14:09)
[2022-10-03] MEDS ORDERED: Bisacodyl 5 MG Tab PO PRN (14:09)
[2022-10-03] MEDS ORDERED: HYDROmorphone 0.5 MG/0.5 ML Syringe IVPUSH PRN (14:09)
[2022-10-03] MEDS ORDERED: Polyethylene Glycol 3350 Powder 17 GM Packet PO PRN (14:09)
[2022-10-03] MEDS ORDERED: Acetaminophen 325 MG Tab PO PRN (14:09)
[2022-10-03] MEDS ORDERED: Sodium Chloride 0.9% 1,000 ML IV SCH (14:15)
[2022-10-03] MEDS ORDERED: 50% Dextrose in Water 50 ML Syringe IVPUSH PRN (14:40)
[2022-10-03] MEDS ORDERED: Glucagon,Human Recombinant 1 MG Vial IM PRN (14:40)
[2022-10-03] MEDS ORDERED: Dexamethasone 4 MG/ML SDV IVPUSH ONE (14:41)
[2022-10-03] MEDS ORDERED: tiZANidine 4 MG Tab PO PRN (14:42)
[2022-10-03] MEDS: Pantoprazole 40 MG Tab.CR PO SCH (15:51)
[2022-10-03] MEDS: Insulin Lispro 100 Units/ML 3 ML Vial SUBCUT SCH (20:04)
[2022-10-03] MEDS: oxyCODONE ER 20 MG TAB.ER PO SCH (20:55)
[2022-10-03] MEDS: Naproxen 250 MG Tab PO SCH (20:55)
[2022-10-03] MEDS: Sodium Chloride 0.9% 10 ML Syringe FLUSH SCH (20:57)
[2022-10-04] MEDS: Pantoprazole 40 MG Tab.CR PO SCH ×2 (05:52→16:01)
[2022-10-04 07:24] LABS: ANION GAP 12.4 mEq/L (7-13)
[2022-10-04] MEDS: Insulin Lispro 100 Units/ML 3 ML Vial SUBCUT SCH ×2 (08:06→17:01)
[2022-10-04] MEDS: Dexamethasone 4 MG Tab PO SCH (08:17)
[2022-10-04] MEDS: Naproxen 250 MG Tab PO SCH ×2 (08:17→20:24)
[2022-10-04] MEDS: oxyCODONE ER 20 MG TAB.ER PO SCH ×2 (08:17→20:24)
[2022-10-04] MEDS: Sodium Chloride 0.9% 10 ML Syringe FLUSH SCH ×2 (11:26→20:25)
[2022-10-04] MEDS ORDERED: traMADol 50 MG Tab PO PRN (22:17)
[2022-10-05] MEDS: Pantoprazole 40 MG Tab.CR PO SCH (05:17)
[2022-10-05] MEDS ORDERED: Non-Formulary Medication 1 Each (Omega-3 Fatty Acids [Fish Oil] 500 MG Capsule) PO SCH (06:00)
[2022-10-05 07:24] LABS: ANION GAP 14.2 mEq/L (7-13)
[2022-10-05] MEDS: Naproxen 250 MG Tab PO SCH (08:39)
[2022-10-05] MEDS: Dexamethasone 4 MG Tab PO SCH (08:41)
[2022-10-05] MEDS: oxyCODONE ER 20 MG TAB.ER PO SCH (08:41)
[2022-10-05] MEDS: Sodium Chloride 0.9% 10 ML Syringe FLUSH SCH (08:43)
[2022-10-05 08:47] VITALS: BP 142/74; PULSE 67
[2022-10-05] MEDS: Insulin Lispro 100 Units/ML 3 ML Vial SUBCUT SCH (08:47)
[2022-10-05] MEDS ORDERED: Non-Formulary Medication 1 Each (Albuterol Sulfate [Proair Digihaler] 90 MCG Aer.Pw.Bas) IH PRN (08:58)
[2022-10-05] MEDS ORDERED: amLODIPine 5 MG Tab PO SCH (09:00)
[2022-10-05] MEDS ORDERED: Ergocalciferol (Vitamin D2) 1.25 MG Cap PO SCH (09:00)
[2022-10-05] MEDS ORDERED: Non-Formulary Medication 1 Each (Vit A/Vit C/Vit E/Zinc/Copper [Preservision] 1 EACH Table PO SCH (09:00)
[2022-10-05] MEDS ORDERED: Non-Formulary Medication 1 Each (Semaglutide [Ozempic] 2 MG/0.75 ML Pen.Injctr) SUBCUT SCH (09:00)
[2022-10-05] MEDS ORDERED: Cholecalciferol (Vitamin D3) 25 MCG Tab PO SCH (09:00)
[2022-10-05] MEDS ORDERED: Metoprolol Succinate 50 MG Tab.ER PO SCH (09:00)
[2022-10-05] MEDS ORDERED: Losartan 50 MG Tab PO SCH ×2 (09:00→21:00)
[2022-10-05] MEDS ORDERED: Non-Formulary Medication 1 Each (Calcium Citrate/Vitamin D3 [Calcium Cit 315 Mg-D3 250 Uni PO SCH (09:00)
[2022-10-05] MEDS ORDERED: Isosorbide Mononitrate 60 MG Tab.ER PO SCH (21:00)
[2022-10-05] MEDS ORDERED: atorvaSTATin 20 MG Tab PO SCH (21:00)
== END 2022-10-05 10:50 | disposition home or self-care (01) ==
LOC: DL.ED 11:08 → DL.MS 13:47
PROVIDERS: ADMIT Internal Medicine; ATTEND Internal Medicine
DX: S06.6X9A Traumatic subarachnoid hemorrhage with loss of consciousness of unspecified duration, initial encounter (principal); I12.9 Hypertensive chronic kidney disease with stage 1 through stage 4 chronic kidney disease, or unspecified chronic kidney disease; N18.30 Chronic kidney disease, stage 3 unspecified; E11.22 Type 2 diabetes mellitus with diabetic chronic kidney disease; E78.00 Pure hypercholesterolemia, unspecified; I25.10 Atherosclerotic heart disease of native coronary artery without angina pectoris; M19.90 Unspecified osteoarthritis, unspecified site; E11.42 Type 2 diabetes mellitus with diabetic polyneuropathy; E83.39 Other disorders of phosphorus metabolism; D64.9 Anemia, unspecified; M47.812 Spondylosis without myelopathy or radiculopathy, cervical region; Z79.899 Other long term (current) drug therapy; Z79.82 Long term (current) use of aspirin; Z91.030 Bee allergy status; Z95.5 Presence of coronary angioplasty implant and graft; Z98.890 Other specified postprocedural states; Z87.891 Personal history of nicotine dependence; Z20.822 Contact with and (suspected) exposure to COVID-19; W00.0XXA Fall on same level due to ice and snow, initial encounter
CPT/HCPCS: 36415; 70450; 72125; 72131; 80053; 82306; 82947; 83735; 85025; 85610; 85730; 87635; 96361; 96374; 97161; 97165; 99284; 99285; A9270; G0378; J1100; J1815; J3490; J7030; J8540; U0002

== ENCOUNTER 2023-04-13 11:48 | Emergency (ER) | payer BC, MEDICARE, MEDICAID ==
[2023-04-13] MEDS ORDERED: Lidocaine 1% 5 ML VIAL ONE (12:13)
[2023-04-13] MEDS ORDERED: Phenylephrine 0.5% Nasal Spray 15 ML Bot ONE (12:13)
[2023-04-13 12:16] VITALS: BP 150/82; PULSE 69
[2023-04-13] MEDS ORDERED: Tranexamic Acid 1,000 MG/10 ML Vial ONE (12:20)
== END 2023-04-13 12:57 | disposition home or self-care (01) ==
LOC: DL.ED 11:48
DX: R04.0 Epistaxis (principal); I25.10 Atherosclerotic heart disease of native coronary artery without angina pectoris; I12.9 Hypertensive chronic kidney disease with stage 1 through stage 4 chronic kidney disease, or unspecified chronic kidney disease; E11.22 Type 2 diabetes mellitus with diabetic chronic kidney disease; E11.42 Type 2 diabetes mellitus with diabetic polyneuropathy; N18.30 Chronic kidney disease, stage 3 unspecified; Z95.5 Presence of coronary angioplasty implant and graft; Z91.030 Bee allergy status; Z79.899 Other long term (current) drug therapy
CPT/HCPCS: 30903; 99283; A9270; 30901; J3490

== ENCOUNTER 2023-05-24 19:54 | Emergency (ER) | payer BC, MEDICARE ==
[2023-05-24] MEDS ORDERED: Lidocaine 5% 700 MG Patch TOP ONE ×2 (20:10→20:11)
[2023-05-24 20:11] VITALS: BP 153/84; PULSE 65
[2023-05-24] MEDS ORDERED: HYDROmorphone 0.5 MG/0.5 ML Syringe IM ONE (20:11)
[2023-05-24] MEDS ORDERED: Ketorolac 30 MG/ML SDV IM ONE (20:12)
== END 2023-05-24 20:30 | disposition home or self-care (01) ==
LOC: DL.ED 19:54
DX: G89.18 Other acute postprocedural pain (principal); M25.511 Pain in right shoulder; I25.10 Atherosclerotic heart disease of native coronary artery without angina pectoris; E78.00 Pure hypercholesterolemia, unspecified; I12.9 Hypertensive chronic kidney disease with stage 1 through stage 4 chronic kidney disease, or unspecified chronic kidney disease; E11.22 Type 2 diabetes mellitus with diabetic chronic kidney disease; N18.30 Chronic kidney disease, stage 3 unspecified; E11.42 Type 2 diabetes mellitus with diabetic polyneuropathy; E66.9 Obesity, unspecified; Z68.29 Body mass index [BMI] 29.0-29.9, adult; Z91.030 Bee allergy status; Z79.899 Other long term (current) drug therapy
CPT/HCPCS: 96374; 96375; 99283; A9270; J1170; J1885

== ENCOUNTER 2023-06-16 18:21 | Emergency (ER) | payer BC, MEDICARE ==
[2023-06-16 19:04] VITALS: BP 165/81; PULSE 60
[2023-06-16] MEDS ORDERED: Ibuprofen 600 MG Tab PO ONE (20:05)
== END 2023-06-16 20:15 | disposition home or self-care (01) ==
LOC: DL.ED 18:21
DX: M79.601 Pain in right arm (principal); I25.10 Atherosclerotic heart disease of native coronary artery without angina pectoris; E78.00 Pure hypercholesterolemia, unspecified; Z12.9 Encounter for screening for malignant neoplasm, site unspecified; N18.9 Chronic kidney disease, unspecified; E11.22 Type 2 diabetes mellitus with diabetic chronic kidney disease; E66.9 Obesity, unspecified; Z79.899 Other long term (current) drug therapy; Z88.7 Allergy status to serum and vaccine; Z87.891 Personal history of nicotine dependence; Z95.5 Presence of coronary angioplasty implant and graft; W10.8XXA Fall (on) (from) other stairs and steps, initial encounter
CPT/HCPCS: 73030-RT; 73060-RT; 99283

== ENCOUNTER 2023-07-03 16:37 | Emergency (ER) | payer BC, MEDICARE ==
[2023-07-03] MEDS ORDERED: cefTRIAXone 1 GM, Lidocaine 1% 2.1 ML IM ONE ×2 (16:51)
[2023-07-03] MEDS ORDERED: Ketorolac 30 MG/ML SDV IM ONE (16:52)
[2023-07-03 16:54] VITALS: BP 168/80; PULSE 62
== END 2023-07-03 17:00 | disposition home or self-care (01) ==
LOC: DL.ED 16:37
DX: J18.9 Pneumonia, unspecified organism (principal); I12.9 Hypertensive chronic kidney disease with stage 1 through stage 4 chronic kidney disease, or unspecified chronic kidney disease; N18.9 Chronic kidney disease, unspecified; I25.10 Atherosclerotic heart disease of native coronary artery without angina pectoris; E11.9 Type 2 diabetes mellitus without complications; E66.9 Obesity, unspecified; E78.00 Pure hypercholesterolemia, unspecified; E87.6 Hypokalemia; E83.39 Other disorders of phosphorus metabolism; Z79.899 Other long term (current) drug therapy; Z91.030 Bee allergy status; Z90.49 Acquired absence of other specified parts of digestive tract; Z68.28 Body mass index [BMI] 28.0-28.9, adult
CPT/HCPCS: 96372; 99283; J0696; J1885; J3490

== ENCOUNTER 2023-07-24 05:57 | Emergency (ER) | payer BC, MEDICARE ==
[2023-07-24 06:13] LABS: BASOPHILS PERCENT AUTO 0.5 % (0.0-1.0); EOSINOPHILS PERCENT AUTO 2.9 % (1.0-3.0); HEMATOCRIT 39.2 % (40.0-54.0); HEMOGLOBIN 12.9 g/dL (14.0-18.0); LYMPHOCYTES PERCENT AUTO 20.7 % (20.5-50.1); MEAN CORPUSCULAR HEMOGLOBIN 29.6 pg (27.0-34.0); MEAN CORPUSCULAR HGB CONC 32.9 g/dL (33.0-35.0); MEAN CORPUSCULAR VOLUME 89.9 fL (80-100); MONOCYTES PERCENT AUTO 9.5 % (2-8); NEUTROPHILS PERCENT AUTO 66.4 % (42.2-75.2); PLATELET COUNT,PLT 241 10^3/uL (150-450); RED BLOOD CELL COUNT 4.36 10^6/uL (4.6-6.2); WHITE BLOOD CELL COUNT,WBC 5.8 10^3/uL (5.0-10.0)
[2023-07-24] MEDS ORDERED: Ondansetron 4 MG/2 ML SDV ONE ×2 (06:17→07:31)
[2023-07-24] MEDS ORDERED: Ondansetron 4 MG/2 ML SDV IVPUSH ONE ×2 (06:17→07:51)
[2023-07-24] MEDS ORDERED: Sodium Chloride 0.9% 1,000 ML IV ONE (06:19)
[2023-07-24] MEDS ORDERED: Naloxone 2 MG/2 ML Syringe IVPUSH ONE ×2 (06:23→07:35)
[2023-07-24] MEDS: Sodium Chloride 0.9% 10 ML Syringe FLUSH PRN ×2 (06:26→07:54)
[2023-07-24 06:27] LABS: PROTHROMBIN TIME 10.2 SEC (9.0-12.0)
[2023-07-24 06:37] LABS: LACTIC ACID 1.1 mmol/L (0.4-2.0)
[2023-07-24 06:41] LABS: APPEARANCE,URINE CLEAR (CLEAR); BILIRUBIN,URINE NEGATIVE (NEGATIVE); COLOR,URINE YELLOW (YELLOW); GLUCOSE,URINE NEGATIVE (NEGATIVE); KETONES,URINE NEGATIVE (NEGATIVE); LEUKOCYTE ESTERASE,URINE NEGATIVE (NEGATIVE); NITRITE,URINE NEGATIVE (NEGATIVE); OCCULT BLOOD,URINE TRACE-INTACT (NEGATIVE); PROTEIN,URINE >=300 (NEGATIVE); UROBILINOGEN,URINE 0.2 mg/dL (0.2-1.0)
[2023-07-24 06:42] LABS: ALANINE AMINOTRANSFERASE,ALT 25 U/L (16-63); ALBUMIN 3.5 g/dL (3.4-5.0); ALKALINE PHOSPHATASE 100 U/L (46-116); ANION GAP 11.9 mEq/L (7-13); ASPARTATE AMNIOTRANSFERASE,AST 20 U/L (15-37); BILIRUBIN TOTAL 0.6 mg/dL (0.2-1.0); BLOOD UREA NITROGEN,BUN 18 mg/dL (7-18); BUN/CREATININE RATIO 11.9 (No establ ref range); C-REACTIVE PROTEIN < 0.50 ng/dL (<=0.50); CALCIUM 8.4 mg/dL (8.5-10.1); CARBON DIOXIDE,CO2 25 mmol/L (21-32); CHLORIDE,CL 104 mmol/L (98-107); CREATININE 1.51 mg/dL (0.70-1.30); ESTIMATED GFR 50 mL/min (>=60); GLUCOSE RANDOM 132 mg/dL (70-99); POTASSIUM,K 3.9 mmol/L (3.5-5.1); PROTEIN TOTAL,TP 6.9 g/dL (6.4-8.2); SODIUM,NA 137 mmol/L (136-145)
[2023-07-24] MEDS ORDERED: Iopamidol 755 Mg/ML 100 ML Bottle IVPUSH ONE (06:44)
[2023-07-24 06:51] LABS: BACTERIA,URINE FEW /HPF (0-FEW/HPF); EPITHELIAL CELLS,URINE FEW /HPF (NOT SEEN); RBC,URINE 0-5 /HPF (0-5); WBC,URINE NOT SEEN /HPF (0-5/HPF)
[2023-07-24 06:52] LABS: MUCUS,URINE OCCASIONAL /LPF (NOT SEEN)
[2023-07-24 07:10] LABS: AMPHETAMINES,URINE NEGATIVE (NEGATIVE); BARBITURATES,URINE NEGATIVE (NEGATIVE); BENZODIAZEPINE,URINE NEGATIVE (NEGATIVE); MDMA (ECSTASY), URINE NEGATIVE (NEGATIVE); METHADONE,URINE NEGATIVE (NEGATIVE); METHAMPHETAMINES,URINE NEGATIVE (NEGATIVE); OPIATES,URINE NEGATIVE (NEGATIVE); OXYCODONE,URINE NEGATIVE (NEGATIVE); PHENCYCLIDINE,URINE NEGATIVE (NEGATIVE); TCA,URINE NEGATIVE (NEGATIVE)
[2023-07-24 07:33] LABS: CORONAVIRUS COVID-19 NAA NEGATIVE (NEGATIVE); INFLUENZA A NAA NEGATIVE (NEGATIVE); INFLUENZA B NAA NEGATIVE (NEGATIVE); RESPIRATORY SYNCYTIAL VIR NAA NEGATIVE (NEGATIVE)
[2023-07-24] MEDS ORDERED: Naloxone 2 MG/2 ML Syringe ONE (07:39)
[2023-07-24] MEDS ORDERED: fentaNYL 100 MCG/2 ML SDV IVPUSH ONE (07:50)
[2023-07-24] MEDS ORDERED: fentaNYL 100 MCG/2 ML SDV ONE (07:51)
[2023-07-24] MEDS ORDERED: Lactated Ringers 1,000 ML IV ONE (08:08)
[2023-07-24] MEDS ORDERED: levETIRAcetam in NaCl (iso-os) 1,000 MG in Premix Bag 1 BAG IV ONE ×2 (10:36)
[2023-07-24] MEDS ORDERED: LORazepam 2 MG/ML SDV IVPUSH ONE (10:37)
[2023-07-24 12:33] VITALS: BP 145/76; PULSE 72
== END 2023-07-24 12:38 | disposition other institution (70) ==
LOC: DL.ED 05:57
DX: R41.82 Altered mental status, unspecified (principal); R51.9 Headache, unspecified; R53.1 Weakness; E11.40 Type 2 diabetes mellitus with diabetic neuropathy, unspecified; E66.9 Obesity, unspecified; E11.22 Type 2 diabetes mellitus with diabetic chronic kidney disease; I12.9 Hypertensive chronic kidney disease with stage 1 through stage 4 chronic kidney disease, or unspecified chronic kidney disease; N18.30 Chronic kidney disease, stage 3 unspecified; I25.10 Atherosclerotic heart disease of native coronary artery without angina pectoris; E78.00 Pure hypercholesterolemia, unspecified; Z86.73 Personal history of transient ischemic attack (TIA), and cerebral infarction without residual deficits; Z95.5 Presence of coronary angioplasty implant and graft; Z79.899 Other long term (current) drug therapy; Z91.030 Bee allergy status
CPT/HCPCS: 0241U; 36415; 70450; 70496; 70498; 71045; 72125; 72128; 72131; 80053; 80305; 80307; 81001; 82140; 82947; 83605; 83735; 85025; 85610; 86140; 93005; 93010; 96361; 96374; 96375; 99285; J1953; J2060; J2310; J2405; J3010; J7030; J7120; Q9967; J3490

== ENCOUNTER 2023-10-02 17:28 | Emergency (ER) | payer BC, MEDICARE ==
[2023-10-02 18:17] VITALS: BP 144/83; PULSE 64
== END 2023-10-02 18:45 | disposition home or self-care (01) ==
LOC: DL.ED 17:28
DX: S61.210A Laceration without foreign body of right index finger without damage to nail, initial encounter (principal); I10 Essential (primary) hypertension; I25.10 Atherosclerotic heart disease of native coronary artery without angina pectoris; E78.00 Pure hypercholesterolemia, unspecified; E66.9 Obesity, unspecified; E11.9 Type 2 diabetes mellitus without complications; Z68.30 Body mass index [BMI] 30.0-30.9, adult; Z91.030 Bee allergy status; Z79.899 Other long term (current) drug therapy; W25.XXXA Contact with sharp glass, initial encounter
CPT/HCPCS: 12001; 99282

== ENCOUNTER 2023-12-24 22:14 | Emergency (ER) | payer BC, MEDICARE ==
[2023-12-24 22:42] VITALS: BP 161/82; PULSE 66
[2023-12-24 23:11] LABS: BASOPHILS PERCENT AUTO 0.4 % (0.0-1.0); EOSINOPHILS PERCENT AUTO 3.9 % (1.0-3.0); HEMATOCRIT 32.6 % (40.0-54.0); HEMOGLOBIN 10.6 g/dL (14.0-18.0); LYMPHOCYTES PERCENT AUTO 21.9 % (20.5-50.1); MEAN CORPUSCULAR HEMOGLOBIN 29.9 pg (27.0-34.0); MEAN CORPUSCULAR HGB CONC 32.5 g/dL (33.0-35.0); MEAN CORPUSCULAR VOLUME 92.1 fL (80-100); MONOCYTES PERCENT AUTO 9.1 % (2-8); NEUTROPHILS PERCENT AUTO 64.7 % (42.2-75.2); PLATELET COUNT,PLT 224 10^3/uL (150-450); RED BLOOD CELL COUNT 3.54 10^6/uL (4.6-6.2); WHITE BLOOD CELL COUNT,WBC 5.4 10^3/uL (5.0-10.0)
[2023-12-24 23:35] LABS: ALBUMIN 3.2 g/dL (3.4-5.0); BILIRUBIN TOTAL 0.4 mg/dL (0.2-1.0); BUN/CREATININE RATIO 12.9 (No establ ref range); CALCIUM 8.4 mg/dL (8.5-10.1); CREATININE 2.01 mg/dL (0.70-1.30); EST CRCL DRUG DOSING (CG) 35.81 mL/min; PROTEIN TOTAL,TP 6.9 g/dL (6.4-8.2)
[2023-12-24 23:36] LABS: A/G RATIO 0.86
== END 2023-12-25 00:47 ==
LOC: DL.ED 22:14
DX: M25.461 Effusion, right knee (principal); M25.561 Pain in right knee; I12.9 Hypertensive chronic kidney disease with stage 1 through stage 4 chronic kidney disease, or unspecified chronic kidney disease; N18.9 Chronic kidney disease, unspecified; I25.10 Atherosclerotic heart disease of native coronary artery without angina pectoris; E78.00 Pure hypercholesterolemia, unspecified; E11.40 Type 2 diabetes mellitus with diabetic neuropathy, unspecified; Z91.030 Bee allergy status; Z79.899 Other long term (current) drug therapy; Z79.85 Long-term (current) use of injectable non-insulin antidiabetic drugs; Z86.73 Personal history of transient ischemic attack (TIA), and cerebral infarction without residual deficits
CPT/HCPCS: 36415; 73562-RT; 80053; 85025; 99283; 99284

== ENCOUNTER 2024-01-31 18:33 | Emergency (ER) | payer BC, MEDICARE | END 2024-01-31 19:00 | disposition left against medical advice (07) | LOC: DL.ED 18:33 | DX: Z53.21 Procedure and treatment not carried out due to patient leaving prior to being seen by health care provider (principal) ==

== ENCOUNTER 2024-02-01 16:52 | Emergency (ER) | payer BC, MEDICARE ==
[2024-02-01 17:42] VITALS: BP 137/85; PULSE 99
[2024-02-01] MEDS: Diphtheria,Pertussis(Acell),Tetanus Vaccine 0.5 ML Syringe IM ONE (17:46)
[2024-02-01] MEDS: Cephalexin 500 MG Cap PO ONE (17:47)
[2024-02-01] MEDS: Take Home: Cephalexin 500 MG Cap, 6 Cap Pack PO ONE (17:57)
== END 2024-02-01 18:01 | disposition home or self-care (01) ==
LOC: DL.ED 16:52
DX: S51.842A Puncture wound with foreign body of left forearm, initial encounter (principal); Z23 Encounter for immunization; I12.0 Hypertensive chronic kidney disease with stage 5 chronic kidney disease or end stage renal disease; I25.10 Atherosclerotic heart disease of native coronary artery without angina pectoris; E78.00 Pure hypercholesterolemia, unspecified; E66.9 Obesity, unspecified; E11.9 Type 2 diabetes mellitus without complications; N18.9 Chronic kidney disease, unspecified; Z91.030 Bee allergy status; Z79.899 Other long term (current) drug therapy; Z90.49 Acquired absence of other specified parts of digestive tract; Z68.28 Body mass index [BMI] 28.0-28.9, adult; W22.8XXA Striking against or struck by other objects, initial encounter
CPT/HCPCS: 73090; 90471; 90715; 99283; A9270

== ENCOUNTER 2024-06-21 10:08 | Emergency (ER) | payer MEDICARE, OTHER ==
[2024-06-21 10:47] VITALS: BP 129/67; PULSE 63
[2024-06-21] MEDS ORDERED: Take Home: Cephalexin 500 MG Cap, 6 Cap Pack PO ONE (10:54)
[2024-06-21] MEDS ORDERED: Take Home: Doxycycline 100 MG Cap, 4 Cap Pack PO ONE (10:55)
[2024-06-21] MEDS ORDERED: Doxycycline Monohydrate 100 MG Cap PO ONE (10:55)
[2024-06-21] MEDS: Cephalexin 500 MG Cap PO ONE (11:07)
== END 2024-06-21 11:16 | disposition home or self-care (01) ==
LOC: DL.ED 10:08
DX: L08.9 Local infection of the skin and subcutaneous tissue, unspecified (principal); I25.10 Atherosclerotic heart disease of native coronary artery without angina pectoris; I12.9 Hypertensive chronic kidney disease with stage 1 through stage 4 chronic kidney disease, or unspecified chronic kidney disease; N18.9 Chronic kidney disease, unspecified; E78.00 Pure hypercholesterolemia, unspecified; E11.22 Type 2 diabetes mellitus with diabetic chronic kidney disease; E66.9 Obesity, unspecified; Z68.28 Body mass index [BMI] 28.0-28.9, adult; Z95.5 Presence of coronary angioplasty implant and graft; Z90.49 Acquired absence of other specified parts of digestive tract; Z86.73 Personal history of transient ischemic attack (TIA), and cerebral infarction without residual deficits; Z91.030 Bee allergy status; Z79.51 Long term (current) use of inhaled steroids; Z79.891 Long term (current) use of opiate analgesic; Z79.899 Other long term (current) drug therapy
CPT/HCPCS: 99282; 99283; A9270

== ENCOUNTER 2024-11-04 21:19 | Emergency (ER) | payer MEDICARE, OTHER ==
[2024-11-04 21:37] VITALS: BP 125/74; PULSE 105
[2024-11-04] MEDS: Ibuprofen 600 MG Tab PO ONE (21:55)
[2024-11-04] MEDS: Sodium Chloride 0.9% 1,000 ML IV ONE (21:55)
[2024-11-04 22:01] LABS: BASOPHILS PERCENT AUTO 0.1 % (0.0-1.0); EOSINOPHILS PERCENT AUTO 0.1 % (1.0-3.0); HEMATOCRIT 34.1 % (40.0-54.0); HEMOGLOBIN 11.1 g/dL (14.0-18.0); LYMPHOCYTES PERCENT AUTO 3.7 % (20.5-50.1); MEAN CORPUSCULAR HEMOGLOBIN 28.9 pg (27.0-34.0); MEAN CORPUSCULAR HGB CONC 32.6 g/dL (33.0-35.0); MEAN CORPUSCULAR VOLUME 88.8 fL (80-100); MONOCYTES PERCENT AUTO 7.3 % (2-8); NEUTROPHILS PERCENT AUTO 88.8 % (42.2-75.2); PLATELET COUNT,PLT 199 10^3/uL (150-450); RED BLOOD CELL COUNT 3.84 10^6/uL (4.6-6.2)
[2024-11-04 22:24] LABS: ANION GAP 17.8 mEq/L (7-13); BILIRUBIN TOTAL 0.6 mg/dL (0.2-1.0); BUN/CREATININE RATIO 11.5 (No establ ref range); CALCIUM 8.4 mg/dL (8.5-10.1); CREATININE 1.91 mg/dL (0.70-1.30); EST CRCL DRUG DOSING (CG) 37.69 mL/min; POTASSIUM,K 3.8 mmol/L (3.5-5.1); PROTEIN TOTAL,TP 7.3 g/dL (6.4-8.2)
[2024-11-04 22:28] LABS: A/G RATIO 0.7
[2024-11-04] MEDS: Dexamethasone 4 MG/ML SDV IVPUSH ONE (23:49)
[2024-11-04] MEDS: Azithromycin 250 MG Tab PO ONE (23:49)
[2024-11-04] MEDS: Albuterol 6.7 GM Inhaler INH ONE (23:49)
[2024-11-04] MEDS: cefTRIAXone 1 GM Vial IVPUSH ONE (23:50)
== END 2024-11-05 00:05 | disposition home or self-care (01) ==
LOC: DL.ED 21:19
DX: J40 Bronchitis, not specified as acute or chronic (principal); I10 Essential (primary) hypertension; I25.10 Atherosclerotic heart disease of native coronary artery without angina pectoris; E78.00 Pure hypercholesterolemia, unspecified; E11.9 Type 2 diabetes mellitus without complications; E66.9 Obesity, unspecified; Z91.030 Bee allergy status; Z79.899 Other long term (current) drug therapy; Z90.49 Acquired absence of other specified parts of digestive tract
CPT/HCPCS: 36415; 71045; 80053; 84484; 85025; 87428; 96361; 96374; 96375; 99285; A9270; J0696; J1100; J7030; 99283